=== PATIENT | female | born 1975 | race Caucasian/White ===

== ENCOUNTER → 2016-11-10 | Outpatient (CLI) | payer MEDICARE, MEDICAID | LOC: MW.CHFP 10:07 | PROVIDERS: ATTEND Nurse Practitioner Family | DX: R50.9 Fever, unspecified (principal); J32.9 Chronic sinusitis, unspecified; R05 Cough | CPT/HCPCS: 36415; 85025; G0463 ==

== ENCOUNTER → 2016-12-06 | Outpatient (CLI) | payer MEDICARE | LOC: MW.CHFP 08:00 | PROVIDERS: ATTEND Physician Assistant | DX: NODX10 (principal) ==

== ENCOUNTER 2016-12-08 13:45 | Emergency (ER) | payer MEDICAID, MEDICARE ==
--- NOTE | 2016-12-08 14:16 | EDM.PDOC ---
ED HPI DIABETIC EMERGENCY - General Chief Complaint: Diabetic Complaint Stated Complaint: HIGH BLOOD SUGAR Time Seen by Provider: 12/08/16 14:05 Source of Information: Reports: Patient History Limitations: Reports: No limitations - History of Present Illness INITIAL COMMENTS - FREE TEXT/NARRATIVE: HISTORY AND PHYSICAL: History of present illness: [Patient comes to the ER today complaining of elevated blood sugars. She is a type I diabetic with an insulin pump. Her insulin pump recorded her blood sugar as greater than 600. This was confirmed with her glucometer with a reading greater than 600. She has tried to push fluids and gone for walks today in an attempt to lower her blood sugars, which has been largely ineffective. She has a dry mouth and eyes feel dry. Her head feels fuzzy and she feels that it is taking longer than normal to answer some questions. She denies any fainting, head trauma or confusion. She's had no nausea vomiting or abdominal pain. She is urinating more frequently than usual. No burning with urination or hematuria. She denies chest pain, shortness of breath, or difficulty breathing.] Review of systems: As per history of present illness and below otherwise all systems reviewed and negative. Past medical history: As per history of present illness and as reviewed below otherwise noncontributory. Surgical history: As per history of present illness and as reviewed below otherwise noncontributory. Social history: No reported history of drug or alcohol abuse. Family history: As per history of present illness and as reviewed below otherwise noncontributory. Physical exam: HEENT: Atraumatic, normocephalic. Oral mucous membranes somewhat dry, throat clear. neck supple, nontender, no lymphadenopathy. Lungs: Clear to auscultation, breath sounds equal bilaterally, chest nontender. Heart: S1S2, regular rate and rhythm, negative for clicks, rubs, or JVD. Abdomen: Overweight, Soft, nondistended, nontender. No CVA tenderness. No guarding or rebound. Negative for masses or hepatosplenomegaly. Pelvis: Stable nontender. Genitourinary: Deferred. Rectal: Deferred. Extremities: Atraumatic, no cyanosis or edema to feet or lower legs. No deformity. Neurovascular unremarkable. Neuro: Awake, alert, oriented. Cranial nerves II through XII unremarkable. Motor and sensory unremarkable throughout. Exam nonfocal. Psych: Alert oriented, answers questions appropriately, logical, congruent thoughts. Diagnostics: [CBC, CMP, ABG's, qualitative Hcg, UA, serum ketones ] Therapeutics: [Normal saline x 2 liters, regular insulin 15 units, regular insulin 8 units] Impression: [Hyperglycemia] Plan: [Patient's labs demonstrate that she is hyperglycemic and not acidotic. Her blood sugar comes down to mid 200s with 2 doses of insulin at 2 L of normal saline. This patient's condition and lab results are reviewed with Dr. Pretty who is in agreement that patient can be discharged home and that there are no grounds for admission at this time. This is reviewed with the patient. She is instructed to change her insulin pump site and continue to monitor blood sugars closely. If she is finding that her pump is ineffective she is to switch to subcutaneous insulin with syringes. She has other insulin at home that she will use if her sugars are not coming down with the injections. She is to follow up with her primary care on Sunday. She is scheduled for an appointment by ER staff. Also recommend following up with diabetes educator. Discussed criteria to return to the emergency room for evaluation. She is in agreement with today' s plan. all questions are answered and concerns are addressed.] Definitive disposition and diagnosis as appropriate pending reevaluation and review of above. - Related Data Allergies/ADRs: Allergies Allergy/AdvReac Type Severity Reaction Status Date / Time latex Allergy Cannot Verified 12/08/16 14:10 Remember Sulfa (Sulfonamide Allergy Difficulty Verified 12/08/16 14:10 Antibiotics) Breathing tizanidine Allergy Rash Verified 12/08/16 14:10 wool Allergy Cannot Verified 12/08/16 14:10 Remember Home Meds: Home Meds Subcutaneous Insulin Pump [Insulin Pump] 0 units SQ ASDIRECTED 05/19/14 [History ] atorvaSTATin [Lipitor] 40 mg PO DAILY 05/12/15 [History] Albuterol [Ventolin HFA] 1 puff PO DAILY 01/07/16 [History] Gabapentin [Gabapentin] 1 cap PO TID 01/07/16 [History] Loratadine/Pseudoephedrine [Claritin-D 24 Hour Tablet] 1 tab PO DAILY 01/07/16 [ History] Mecobal/Levomefolat Ca/B6 Phos [Foltanx Tablet] 1 tab PO DAILY 01/07/16 [History ] Cyclobenzaprine [Flexeril] 5 mg PO DAILY 12/08/16 [History] Gabapentin [Neurontin] 300 mg PO DAILY 12/08/16 [History] hydrOXYzine HCl [Atarax] 25 mg PO DAILY 12/08/16 [History] Past Medical History Other Cardiovascular History: Mitral valve prolapse Respiratory History: Reports: Asthma Other Genitourinary History: Kidney prob due to diabetes [employer]ILD[employer]TE[employer] History: Reports: Musculoskeletal History: Reports: Back pain, chronic Neurological History: Reports: Neuropathy, diabetic Endocrine/Metabolic History: Reports: Diabetes, type I - Past Surgical History HEENT Surgical History: Reports: Oral surgery GI Surgical History: Reports: Cholecystectomy Neurological Surgical History: Reports: C-Spine, Lumbar spine Social & Family History - Family History Family Medical History: Noncontributory - Tobacco Use Smoking Status *Q: Current Every Day Smoker Years of Tobacco use: 24 Packs/Tins Daily: 1 - Alcohol Use Days Per Week of Alcohol Use: 0 - Recreational Drug Use Recreational Drug Use: No Drug Use in Last 12 Months: No Recreational Drug Type: Reports: Cocaine, Marijuana/Hashish, Methamphetamine ED ROS GENERAL - Review of Systems Review Of Systems: ROS reveals no pertinent complaints other than HPI. ED EXAM GENERAL NO PERIP PULSE - Physical Exam Exam: See Below Course - Vital Signs Last Recorded V/S: Last Vital Signs Temp 98.8 F 12/08/16 18:18 Pulse 88 12/08/16 18:18 Resp 16 12/08/16 18:18 BP 148/90 H 12/08/16 18:18 Pulse Ox 98 12/08/16 18:18 - Orders/Labs/Meds Orders: Active Orders 24 hr Category Date Time Status Saline Lock Insert [OM.PC] Stat Oth 12/08/16 14:29 Ordered Labs: Laboratory Tests 12/08/16 12/08/16 12/08/16 Range/Units 13:58 14:16 14:16 WBC 9.91 (4.0-11.0) K/uL RBC 4.29 L (4.30-5.90) M/uL Hgb 13.3 (12.0-16.0) g/dL Hct 40.3 (36.0-46.0) % MCV 93.9 (80.0-98.0) fL MCH 31.0 (27.0-32.0) pg MCHC 33.0 (31.0-37.0) g/dL RDW Std Deviation 50.4 (28.0-62.0) fl RDW Coeff of Kristi 15 (11.0-15.0) % Plt Count 329 (150-400) K/uL MPV 9.20 (7.40-12.00) fL Neut % (Auto) 71.7 (48.0-80.0) % Lymph % (Auto) 20.5 (16.0-40.0) % [place] % (Auto) 5.2 (0.0-15.0) % Eos % (Auto) 2.4 (0.0-7.0) % Baso % (Auto) 0.2 (0.0-1.5) % Neut # (Auto) 7.1 H (1.4-5.7) K/uL Lymph # (Auto) 2.0 (0.6-2.4) K/uL [place] # (Auto) 0.5 (0.0-0.8) K/uL Eos # (Auto) 0.2 (0.0-0.7) K/uL Baso # (Auto) 0.0 (0.0-0.1) K/uL Nucleated RBC % 0.0 /100WBC Nucleated RBCs # 0 K/uL ABG pH (7.35-7.45) ABG pCO2 (35-45) mmHG ABG pO2 (75-100) mmHG ABG HCO3 (22-26) mEq/L ABG Total CO2 ABG Base Excess (-2.0-2.0) Sodium 132 L (136-146) mmol/L Potassium 4.8 (3.5-5.1) mmol/L Chloride 100 (98-110) mmol/L Carbon Dioxide 17 L (21-31) mmol/L BUN 25 H (6.0-23.0) mg/dL Creatinine 1.2 (0.6-1.5) mg/dL Est Cr Clr Drug Dosing 58.78 mL/min Estimated GFR (MDRD) 49.0 ml/min Glucose 681 H* (60-110) mg/dL POC Glucose > 500 H (60-110) mg/dL Calcium 9.8 (8.8-10.8) mg/dL Total Bilirubin 0.6 (0.1-1.5) mg/dL AST 17 (5-40) IU/L ALT 18 (8-54) IU/L Alkaline Phosphatase 91 (40-150) Total Protein 8.0 (6.0-8.0) g/dL Albumin 4.3 (3.5-5.0) g/dL Globulin 3.7 H (2.0-3.5) g/dL Albumin/Globulin Ratio 1.2 L (1.3-2.8) Urine Color Urine Appearance Urine pH (5.0-8.0) Ur Specific [place] (1.001-1.035) Urine Protein (NEGATIVE) mg/dL Urine Glucose (UA) (NEGATIVE) mg/dL Urine Ketones (NEGATIVE) mg/dL Urine Occult Blood (NEGATIVE) Urine Nitrite (NEGATIVE) Urine Bilirubin (NEGATIVE) Urine Urobilinogen (<2.0) EU/dL Ur Leukocyte Esterase (NEGATIVE) Urine RBC (0-2/HPF) Urine WBC (0-5/HPF) Ur Epithelial Cells (NONE-FEW) Urine Bacteria (NEGATIVE) Urine HCG, Qual (NEGATIVE) Ketones (NEG) 12/08/16 12/08/16 12/08/16 Range/Units 14:16 14:38 14:38 WBC (4.0-11.0) K/uL RBC (4.30-5.90) M/uL Hgb (12.0-16.0) g/dL Hct (36.0-46.0) % MCV (80.0-98.0) fL MCH (27.0-32.0) pg MCHC (31.0-37.0) g/dL RDW Std Deviation (28.0-62.0) fl RDW Coeff of Kristi (11.0-15.0) % Plt Count (150-400) K/uL MPV (7.40-12.00) fL Neut % (Auto) (48.0-80.0) % Lymph % (Auto) (16.0-40.0) % [place] % (Auto) (0.0-15.0) % Eos % (Auto) (0.0-7.0) % Baso % (Auto) (0.0-1.5) % Neut # (Auto) (1.4-5.7) K/uL Lymph # (Auto) (0.6-2.4) K/uL [place] # (Auto) (0.0-0.8) K/uL Eos # (Auto) (0.0-0.7) K/uL Baso # (Auto) (0.0-0.1) K/uL Nucleated RBC % /100WBC Nucleated RBCs # K/uL ABG pH (7.35-7.45) ABG pCO2 (35-45) mmHG ABG pO2 (75-100) mmHG ABG HCO3 (22-26) mEq/L ABG Total CO2 ABG Base Excess (-2.0-2.0) Sodium (136-146) mmol/L Potassium (3.5-5.1) mmol/L Chloride (98-110) mmol/L Carbon Dioxide (21-31) mmol/L BUN (6.0-23.0) mg/dL Creatinine (0.6-1.5) mg/dL Est Cr Clr Drug Dosing mL/min Estimated GFR (MDRD) ml/min Glucose (60-110) mg/dL POC Glucose (60-110) mg/dL Calcium (8.8-10.8) mg/dL Total Bilirubin (0.1-1.5) mg/dL AST (5-40) IU/L ALT (8-54) IU/L Alkaline Phosphatase (40-150) Total Protein (6.0-8.0) g/dL Albumin (3.5-5.0) g/dL Globulin (2.0-3.5) g/dL Albumin/Globulin Ratio (1.3-2.8) Urine Color YELLOW Urine Appearance CLEAR Urine pH 5.5 (5.0-8.0) Ur Specific [place] 1.010 (1.001-1.035) Urine Protein NEGATIVE (NEGATIVE) mg/dL Urine Glucose (UA) >=1000 (NEGATIVE) mg/dL Urine Ketones 40 H (NEGATIVE) mg/dL Urine Occult Blood NEGATIVE (NEGATIVE) Urine Nitrite NEGATIVE (NEGATIVE) Urine Bilirubin NEGATIVE (NEGATIVE) Urine Urobilinogen 0.2 (<2.0) EU/dL Ur Leukocyte Esterase NEGATIVE (NEGATIVE) Urine RBC 0-1 (0-2/HPF) Urine WBC 0-1 (0-5/HPF) Ur Epithelial Cells FEW (NONE-FEW) Urine Bacteria RARE (NEGATIVE) Urine HCG, Qual NEGATIVE (NEGATIVE) Ketones NEGATIVE (NEG) 12/08/16 Range/Units 14:45 WBC (4.0-11.0) K/uL RBC (4.30-5.90) M/uL Hgb (12.0-16.0) g/dL Hct (36.0-46.0) % MCV (80.0-98.0) fL MCH (27.0-32.0) pg MCHC (31.0-37.0) g/dL RDW Std Deviation (28.0-62.0) fl RDW Coeff of Kristi (11.0-15.0) % Plt Count (150-400) K/uL MPV (7.40-12.00) fL Neut % (Auto) (48.0-80.0) % Lymph % (Auto) (16.0-40.0) % [place] % (Auto) (0.0-15.0) % Eos % (Auto) (0.0-7.0) % Baso % (Auto) (0.0-1.5) % Neut # (Auto) (1.4-5.7) K/uL Lymph # (Auto) (0.6-2.4) K/uL [place] # (Auto) (0.0-0.8) K/uL Eos # (Auto) (0.0-0.7) K/uL Baso # (Auto) (0.0-0.1) K/uL Nucleated RBC % /100WBC Nucleated RBCs # K/uL ABG pH 7.381 (7.35-7.45) ABG pCO2 33 L (35-45) mmHG ABG pO2 75 (75-100) mmHG ABG HCO3 19 L (22-26) mEq/L ABG Total CO2 17.4 ABG Base Excess -5.1 L (-2.0-2.0) Sodium (136-146) mmol/L Potassium (3.5-5.1) mmol/L Chloride (98-110) mmol/L Carbon Dioxide (21-31) mmol/L BUN (6.0-23.0) mg/dL Creatinine (0.6-1.5) mg/dL Est Cr Clr Drug Dosing mL/min Estimated GFR (MDRD) ml/min Glucose (60-110) mg/dL POC Glucose (60-110) mg/dL Calcium (8.8-10.8) mg/dL Total Bilirubin (0.1-1.5) mg/dL AST (5-40) IU/L ALT (8-54) IU/L Alkaline Phosphatase (40-150) Total Protein (6.0-8.0) g/dL Albumin (3.5-5.0) g/dL Globulin (2.0-3.5) g/dL Albumin/Globulin Ratio (1.3-2.8) Urine Color Urine Appearance Urine pH (5.0-8.0) Ur Specific [place] (1.001-1.035) Urine Protein (NEGATIVE) mg/dL Urine Glucose (UA) (NEGATIVE) mg/dL Urine Ketones (NEGATIVE) mg/dL Urine Occult Blood (NEGATIVE) Urine Nitrite (NEGATIVE) Urine Bilirubin (NEGATIVE) Urine Urobilinogen (<2.0) EU/dL Ur Leukocyte Esterase (NEGATIVE) Urine RBC (0-2/HPF) Urine WBC (0-5/HPF) Ur Epithelial Cells (NONE-FEW) Urine Bacteria (NEGATIVE) Urine HCG, Qual (NEGATIVE) Ketones (NEG) Meds: Medications Discontinued Medications Generic Name Dose Route Start Last Admin Trade Name Freq PRN Reason Stop Dose Admin Sodium Chloride 1,000 mls @ 999 mls/hr 12/08/16 14:30 Normal Saline IV 12/08/16 15:30 STAT ONE Sodium Chloride 1,000 mls @ 999 mls/hr 12/08/16 14:43 12/08/16 15:27 Normal Saline IV 12/08/16 15:43 999 mls/hr STAT ONE Administration Sodium Chloride 1,000 mls @ 999 mls/hr 12/08/16 16:49 12/08/16 17:10 Normal Saline IV 12/08/16 17:49 999 mls/hr STAT ONE Administration Insulin Human Regular 15 unit 12/08/16 14:55 12/08/16 15:27 Novolin R SUBCUT 12/08/16 14:56 15 units ONETIME ONE Administration Protocol Insulin Human Regular 12 unit 12/08/16 16:49 Novolin R SUBCUT 12/08/16 16:50 ONETIME ONE Protocol Insulin Human Regular 8 unit 12/08/16 17:11 12/08/16 17:12 Novolin R IVPUSH 12/08/16 17:12 8 units ONETIME ONE Administration Protocol Sodium Chloride 10 ml 12/08/16 14:29 12/08/16 15:30 Saline Flush FLUSH 10 ml ASDIRECTED PRN Administration Keep Vein Open Sodium Chloride 2.5 ml 12/08/16 14:29 12/08/16 15:30 Saline Flush FLUSH 2.5 ml ASDIRECTED PRN Administration Keep Vein Open Departure - Departure Time of Disposition: 18:10 Disposition: Home, Self-Care 01 Condition: good Clinical Impression: Hyperglycemia Instructions: Hyperglycemia Referrals: Cherie Jasso PA [Physician Tax Services Intern] - 12/11/16 (Follow up on with [facility] at Sunday12/11/2016 at 2:00pm) PCP,None [Primary Care Provider] - Forms: ED Department Discharge Additional Instructions: The following information is given to patients seen in the emergency department who are being discharged to home. This information is to outline your options for follow-up care. We provide all patients seen in our emergency department with a follow-up referral. The need for follow-up, as well as the timing and circumstances, are variable depending upon the specifics of your emergency department visit. If you don't have a primary care physician on staff, we will provide you with a referral. We always advise you to contact your personal physician following an emergency department visit to inform them of the circumstance of the visit and for follow-up with them and/or the need for any referrals to a consulting specialist. The emergency department will also refer you to a specialist when appropriate. This referral assures that you have the opportunity for follow-up care with a specialist. All of these measure are taken in an effort to provide you with optimal care, which includes your follow-up. Under all circumstances we always encourage you to contact your private physician who remains a resource for coordinating your care. When calling for follow-up care, please make the office aware that this follow-up is from your recent emergency room visit. If for any reason you are refused follow-up, please contact the [facility] emergency department at and asked to speak to the emergency department charge nurse. [address] [address] Followup with your primary care provider at the clinic listed above as scheduled. Recommend following up with diabetic specialist on Sunday, December 11. Continue close monitoring of your blood sugars and adjust your insulin as needed as we discussed. Return to ER as needed as discussed.
[2016-12-08] MEDS ORDERED: Sodium Chloride 0.9% 10 ML Syringe FLUSH PRN (14:29)
[2016-12-08] MEDS ORDERED: Sodium Chloride 0.9% 2.5 ML Syringe FLUSH PRN (14:29)
[2016-12-08] MEDS ORDERED: Sodium Chloride 0.9% 1,000 ML IV ONE ×3 (14:30→16:49)
[2016-12-08] MEDS ORDERED: Insulin Regular, Human 100 Units/ML 10 ML Vial SUBCUT ONE ×2 (14:55→16:49)
[2016-12-08] MEDS ORDERED: Insulin Regular, Human 100 Units/ML 10 ML Vial IVPUSH ONE (17:11)
--- NOTE | 2016-12-08 17:41 | PCM.PRNOTE ---
- Free Text/Narrative Note: asked to see pt for an abg draw and peripheral iv start. explained procedure to patient who agrees to proceed. blood gas drawn left radial with one pass. # 20 peripheral start x 2 attempts, started left wrist. pt tolerated well.
[2016-12-08 18:20] VITALS: BP 148/90
== END 2016-12-08 18:18 | disposition home or self-care (01) ==
LOC: MW.ED 13:45
DX: E10.65 Type 1 diabetes mellitus with hyperglycemia (principal); E10.40 Type 1 diabetes mellitus with diabetic neuropathy, unspecified; E10.21 Type 1 diabetes mellitus with diabetic nephropathy; J45.909 Unspecified asthma, uncomplicated; F17.210 Nicotine dependence, cigarettes, uncomplicated; Z88.2 Allergy status to sulfonamides; Z91.040 Latex allergy status; Z79.899 Other long term (current) drug therapy; Z98.890 Other specified postprocedural states; Z90.89 Acquired absence of other organs
CPT/HCPCS: 36415; 36600; 80053; 81001; 81025; 82009; 82803; 82962; 85025; 96361; 96372; 96374; 99285; J7040; 36410; 99284; J1815-GY

== ENCOUNTER → 2016-12-13 | Outpatient (CLI) | payer MEDICARE | LOC: MW.CHFP 08:00 | PROVIDERS: ATTEND Physician Assistant | DX: NODX10 (principal) ==

== ENCOUNTER → 2017-01-03 | Outpatient (CLI) | payer MEDICARE, MEDICAID ==
--- NOTE | 2017-01-03 16:59 | CR ---
EXAMINATION: Cervical spine HISTORY: Neck pain COMPARISON: 10/09/2016 TECHNIQUE: Lateral view FINDINGS/IMPRESSION: There is stable anterior fusion hardware at C6-C7 with grossly stable mildly in creasing interbody osseous fusion. The C5 and C6 vertebral bodies are fused. Otherwise the osseous s tructures appear intact with normal bone mineralization.
== END ==
LOC: MW.DI 11:46
PROVIDERS: ATTEND Neurological Surgery
DX: M54.2 Cervicalgia (principal); Z98.1 Arthrodesis status
CPT/HCPCS: 72020; 72020-26

== ENCOUNTER → 2017-01-08 | Outpatient (CLI) | payer MEDICARE, MEDICAID | END | disposition home or self-care (01) | LOC: MW.CHFP 08:13 | PROVIDERS: ATTEND Physician Assistant | DX: Z11.3 Encounter for screening for infections with a predominantly sexual mode of transmission (principal); E78.5 Hyperlipidemia, unspecified; E11.9 Type 2 diabetes mellitus without complications; Z79.4 Long term (current) use of insulin; K21.9 Gastro-esophageal reflux disease without esophagitis; J32.0 Chronic maxillary sinusitis; Z01.419 Encounter for gynecological examination (general) (routine) without abnormal findings | CPT/HCPCS: 36415; 80061; 82044; 83036; 86592; 87389; 87491; 87591; 99214 ==

== ENCOUNTER → 2017-01-10 | Outpatient (CLI) | payer MEDICARE, MEDICAID | LOC: MW.CHPM 08:00 | PROVIDERS: ATTEND Anesthesiology | DX: M54.12 Radiculopathy, cervical region (principal); E11.42 Type 2 diabetes mellitus with diabetic polyneuropathy; M51.36 Other intervertebral disc degeneration, lumbar region; M96.1 Postlaminectomy syndrome, not elsewhere classified | CPT/HCPCS: 99214 ==

== ENCOUNTER → 2017-01-16 | Outpatient (CLI) | payer MEDICARE, MEDICAID | LOC: MW.CHFP 08:00 | PROVIDERS: ATTEND Physician Assistant | DX: L55.1 Sunburn of second degree (principal) | CPT/HCPCS: G0463 ==

== ENCOUNTER 2018-11-09 15:51 | Emergency (ER) | payer MEDICAID, MEDICARE ==
--- NOTE | 2018-11-09 16:00 | EDM.PDOC ---
ED HPI GENERAL MEDICAL PROBLEM - General Stated Complaint: FELL AND HIT HEAD Time Seen by Provider: 11/09/18 15:52 Source of Information: Reports: Patient History Limitations: Reports: No Limitations - History of Present Illness INITIAL COMMENTS - FREE TEXT/NARRATIVE: HISTORY AND PHYSICAL: History of present illness: Patient is a 43-year-old female who presents to the emergency room with complaints of head and neck pain after falling and hitting her head yesterday evening. She states she slipped on some ice and fell backwards hitting the back of her head on concrete. She states this fall was unwitnessed and is unsure if she had brief loss of consciousness. Believes she had no LOC. States she had blurred vision for approximately one hour after the event. She has had intermittent nausea without vomiting. She was able to sleep without any difficulty. Pain to her posterior scalp and upper cervical spine has not subsided. She does have some anterior right-sided rib pain and posterior pelvis pain (states this is chronic due to previous injury/surgery). She denies any alcohol or drug abuse. She denies any fever, chills, chest pain, shortness of breath or cough. Denies any abdominal pain, vomiting, diarrhea, constipation or dysuria. Patient has been fully ambulatory without any difficulty or deficits. Denies any urinary or fecal incontinence. Denies any syncope or near-syncope or current change in vision. Denies any chance of . Review of systems: As per history of present illness and below otherwise all systems reviewed and negative. Past medical history: As per history of present illness and as reviewed below otherwise noncontributory. Surgical history: As per history of present illness and as reviewed below otherwise noncontributory. Social history: See social history for further information Family history: As per history of present illness and as reviewed below otherwise noncontributory. Physical exam: General: Well-developed and well-nourished 43-year-old female. Alert and oriented. Nontoxic appearing and in no acute distress. HEENT: Mild tenderness to posterior scalp, normocephalic, pupils equal and reactive bilaterally, negative for conjunctival pallor or scleral icterus, mucous membranes moist, TMs normal bilaterally, throat clear, neck supple, nontender, trachea midline. No drooling or trismus noted. No meningeal signs. No hot potato voice noted. Lungs: Clear to auscultation, breath sounds equal bilaterally, chest nontender. Heart: S1S2, regular rate and rhythm without overt murmur Abdomen: Soft, nondistended, nontender. Negative for masses or hepatosplenomegaly. Negative for costovertebral tenderness. Pelvis: Stable nontender. Genitourinary: Deferred. Rectal: Deferred. Skin: Intact, warm, dry. No lesions or rashes noted. C-spine/Back: No pinpoint vertebral tenderness upon palpation. No crepitus, step -offs or obvious deformities. She does have some paraspinous muscle tenderness to bilateral cervical spine. Patient is fully ambulatory without difficulty or deficits. Denies any numbness, tingling or satellite parasthesia. Denies any urinary or fecal incontinence. Extremities: Moves all per self, negative for cords or calf pain. Neurovascular unremarkable. Neuro: Awake, alert, oriented. Cranial nerves II through XII unremarkable. Cerebellum unremarkable. Motor and sensory unremarkable throughout. Exam nonfocal. Notes: Patient's head CT shows no acute infarction, intracranial hemorrhage or mass effect. chest x-ray shows no evidence of acute cardiopulmonary disease. Pelvis x -ray shows mild osteoarthritis. No fracture noted. Minimal degenerative disease. Cervical spine CT shows no acute fracture or abnormality/sublux injury. 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 Supportive care measures were reviewed and discussed. Voices understanding and is agreeable to plan of care. Denies any further questions or concerns at this time. Diagnostics: Head CT, cervical spine CT, 2 view chest, pelvis Therapeutics: Declines Prescription: Declines Impression: Head injury Plan: 1. Please review the head injury instructions that are printed in your packet and were reviewed and discussed 2. Tylenol and/or ibuprofen as needed for pain management. 3. Please follow-up with your primary care provider as we discussed. Return to the ED as needed and as discussed. Definitive disposition and diagnosis as appropriate pending reevaluation and review of above. Head Pain Score (Numeric/FACES): 6 - Related Data Allergies Allergy/AdvReac Type Severity Reaction Status Date / Time latex Allergy Cannot Verified 11/09/18 16:04 Remember Sulfa (Sulfonamide Allergy Difficulty Verified 11/09/18 16:04 Antibiotics) Breathing tizanidine Allergy Rash Verified 11/09/18 16:04 wool Allergy Cannot Verified 11/09/18 16:04 Remember Home Meds: Home Meds Acetaminophen [Tylenol Arthritis] 1,300 mg PO BID 11/09/18 [History] Albuterol [Ventolin HFA] 2 puff INH Q4H PRN 11/09/18 [History] Aspirin [Halfprin] 81 mg PO DAILY 11/09/18 [History] Bran/Gum/Fib/[place]/Psyl/Kelp/Pec [Fiber 6 Tablet] 8,000 mg PO DAILY 11/09/18 [ History] C-Marlen/Catia/Bacl/Bupiv/Clonid 11/09/18 [History] Cholecalciferol (Vitamin D3) [Vitamin D3] 2,000 unit PO DAILY 11/09/18 [History] Cyclobenzaprine [Flexeril] 5 mg PO ASDIRECTED 11/09/18 [History] EPINEPHrine [Epipen] 0.3 ml IM ASDIRECTED 11/09/18 [History] Fluticasone Propionate [Flonase] 2 spray NASBOTH BID 11/09/18 [History] Gabapentin [Neurontin] 300 mg PO ASDIRECTED 11/09/18 [History] Krill/[place]-3/Dha/Epa/Lipids [Krill Oil 300 mg Softgel] 1 tab PO DAILY 11/09/18 [History] Lisinopril [Prinivil] 2.5 mg PO DAILY 11/09/18 [History] Loratadine 10 mg PO DAILY 11/09/18 [History] Magnesium 250 mg PO DAILY 11/09/18 [History] Mecobal/Levomefolat Ca/B6 Phos [Foltanx Tablet] 1 tab PO BID 11/09/18 [History] Melatonin 9 mg PO BEDTIME 11/09/18 [History] Montelukast [Singulair] 10 mg PO BEDTIME 11/09/18 [History] Multivitamin with Iron [Multivitamins with Iron] 1 tab PO DAILY 11/09/18 [ History] Pantoprazole [ProTONIX] 40 mg PO DAILY 11/09/18 [History] Potassium Gluconate [Potassium] 595 mg PO DAILY 11/09/18 [History] Vitamin E 400 unit PO DAILY 11/09/18 [History] atorvaSTATin [Lipitor] 40 mg PO BEDTIME 11/09/18 [History] busPIRone HCl [Buspirone HCl] 15 mg PO BID 11/09/18 [History] diphenhydrAMINE [Benadryl] 50 mg PO ASDIRECTED PRN 11/09/18 [History] hydrOXYzine HCl [hydrOXYzine] 50 mg PO BID 11/09/18 [History] traZODone HCl [Trazodone HCl] 100 mg PO BEDTIME 11/09/18 [History] Past Medical History Cardiovascular History: Reports: High Cholesterol, [place] Other Cardiovascular History: [place] at 14yrs age Respiratory History: Reports: Asthma Other Genitourinary History: Kidney prob due to diabetes 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 ASSISTANT History: Reports: Musculoskeletal History: Reports: Back Pain, Chronic Neurological History: Reports: Neuropathy, Diabetic Endocrine/Metabolic History: Reports: Diabetes, Type I Hematologic History: Reports: None - Infectious Disease History Infectious Disease History: Reports: Chicken Pox - Past Surgical History HEENT Surgical History: Reports: Oral Surgery GI Surgical History: Reports: Cholecystectomy Neurological Surgical History: Reports: C-Spine, Lumbar Spine Musculoskeletal Surgical History: Reports: Other (See Below) Social & Family History - Family History Family Medical History: Noncontributory - Caffeine Use Caffeine Use: Reports: Coffee, Soda ED ROS GENERAL - Review of Systems Review Of Systems: ROS reveals no pertinent complaints other than HPI. ED EXAM, HEAD INJURY - Physical Exam Exam: See Below (See dictation) Course - Vital Signs Last Recorded V/S: Last Vital Signs Temp 96.8 F 11/09/18 16:04 Pulse 113 H 11/09/18 16:04 Resp 16 11/09/18 16:04 BP 142/100 H 11/09/18 16:04 Pulse Ox 98 11/09/18 16:04 Departure - Departure Time of Disposition: 16:54 Disposition: Home, Self-Care 01 Clinical Impression: Head injury Qualifiers: Encounter type: initial encounter Qualified Code(s): S09.90XA - Unspecified injury of head, initial encounter - Discharge Information Instructions: Concussion, Adult, [id number], Head Injury, Adult, [id number] Additional Instructions: The following information is given to patients seen in the emergency department who are being discharged to home. This information is to outline your options for follow-up care. We provide all patients seen in our emergency department with a follow-up referral. The need for follow-up, as well as the timing and circumstances, are variable depending upon the specifics of your emergency department visit. If you don't have a primary care physician on staff, we will provide you with a referral. We always advise you to contact your personal physician following an emergency department visit to inform them of the circumstance of the visit and for follow-up with them and/or the need for any referrals to a consulting specialist. The emergency department will also refer you to a specialist when appropriate. This referral assures that you have the opportunity for follow-up care with a specialist. All of these measure are taken in an effort to provide you with optimal care, which includes your follow-up. Under all circumstances we always encourage you to contact your private physician who remains a resource for coordinating your care. When calling for follow-up care, please make the office aware that this follow-up is from your recent emergency room visit. If for any reason you are refused follow-up, please contact the [facility] Emergency Department at and asked to speak to the emergency department charge nurse. [facility] [address] [place] [address] [place] [address] 1. Please review the head injury instructions that are printed in your packet and were reviewed and discussed 2. Tylenol and/or ibuprofen as needed for pain management. 3. Please follow-up with your primary care provider as we discussed. Return to the ED as needed and as discussed.
--- NOTE | 2018-11-09 16:41 | CR ---
INDICATION: pain/fell on ice yesterday 2 View Chest. Findings: The lungs are clear. Pulmonary vascularity, mediastinum and cardiac silhouette are within normal limits. No effusions and no pneumothorax. Osseous structures appear unremarkable. Impression: No evidence of acute cardiopulmonary disease. Dictated by: Mauricio Ramires MD @ 11/09/2018 16:41:01 (Electronically Signed)
--- NOTE | 2018-11-09 16:43 | CT ---
INDICATION: Pain. Fell yesterday, hit back of head on ice. TECHNIQUE: CT head without i.v. contrast. COMPARISON: Comparison head CT dated 06/22/2018. FINDINGS: CSF spaces: Within normal limits for age. Brain parenchyma: The brain parenchyma is normal in appearance with preservation of the galdamez-white differentiation. No sign of mass, hemorrhage, or midline shift seen. Skull base and calvarium: The visualized paranasal sinuses are well aerated. The mastoid air cells are clear. The visualized orbits are grossly unremarkable. No skull fractures are seen. IMPRESSION: 1. No evidence of acute infarction, intracranial hemorrhage, or mass effect seen. Dictated by David Benito MD @ 11/09/2018 4:41:47 PM Please note that all CT scans at this facility use dose modulation, iterative reconstruction, and/or weight-based dosing when appropriate to reduce radiation dose to as low as reasonably achievable. Dictated by: David Benito MD @ 11/09/2018 16:41:53 (Electronically Signed)
--- NOTE | 2018-11-09 16:43 | CR ---
INDICATION: Pain after fall. TECHNIQUE: One view. IMPRESSION: Mild osteoarthritis of both hips. Lumbosacral fusion with interbody implants L3 through S1. Surgical clips and potentially embolization coils ventral from midline S1. No pelvic fracture. Minimal likely degenerative offset at the symphysis pubis with the left pubis elevated prior roughly 2.5 mm over the right. Sacroiliac joints appear normal. Dictated by Mauricio Ramires MD @ Nov 09 2018 4:41PM Signed by Dr. Mauricio Ramires @ Nov 09 2018 4:42PM
--- NOTE | 2018-11-09 16:50 | CT ---
INDICATION: Neck pain. Fell yesterday, hit back of head on ice. TECHNIQUE: CT cervical spine without i.v. contrast. Coronal and sagittal reformats were obtained. COMPARISON: CT cervical spine dated 05/12/2015. FINDINGS: Vertebral alignment: Alignment is normal. Lateral masses of C1-C2 are normally aligned. Facet joints are normally aligned at all levels. Vertebrae: Postsurgical changes from anterior fusion at C6-C7 with interbody fusion of C5-C6 and C6-C7. No acute fracture. Discs and facet joints: Disc spaces are within normal limits. The facet joints are unremarkable in appearance. Extraspinal findings: The prevertebral soft tissues are unremarkable in appearance. The visualized lung apices and mediastinum are unremarkable. IMPRESSION: 1. No acute cervical spine fracture or abnormal subluxation injury. Dictated by David Benito MD @ 11/09/2018 4:48:14 PM Please note that all CT scans at this facility use dose modulation, iterative reconstruction, and/or weight-based dosing when appropriate to reduce radiation dose to as low as reasonably achievable. Dictated by: David Benito MD @ 11/09/2018 16:48:20 (Electronically Signed)
[2018-11-09 17:29] VITALS: BP 114/79
== END 2018-11-09 17:17 | disposition home or self-care (01) ==
LOC: MW.ED 15:51
DX: S09.90XA Unspecified injury of head, initial encounter (principal); E10.40 Type 1 diabetes mellitus with diabetic neuropathy, unspecified; E78.00 Pure hypercholesterolemia, unspecified; Z79.899 Other long term (current) drug therapy; Z79.82 Long term (current) use of aspirin; Z91.040 Latex allergy status; Z88.2 Allergy status to sulfonamides; Z91.09 Other allergy status, other than to drugs and biological substances; Z88.8 Allergy status to other drugs, medicaments and biological substances; W19.XXXA Unspecified fall, initial encounter; W22.8XXA Striking against or struck by other objects, initial encounter
CPT/HCPCS: 70450; 70450-26; 71046; 71046-26; 72125; 72125-26; 72170; 72170-26; 99284; 99284-25

== ENCOUNTER 2019-04-28 08:32 | Emergency (ER) | payer MEDICAID, MEDICARE ==
--- NOTE | 2019-04-28 08:45 | EDM.PDOC ---
ED HPI GENERAL MEDICAL PROBLEM - General Chief Complaint: Lower Extremity Injury/Pain Stated Complaint: RIGHT ANKLE PAIN Time Seen by Provider: 04/28/19 08:36 - History of Present Illness INITIAL COMMENTS - FREE TEXT/NARRATIVE: HISTORY AND PHYSICAL: History of present illness: Patient's 43-year-old white female presents with concern of right ankle injury this occurred when she was getting off a ladder yesterday and rolled her ankle. She also complains of some proximal leg tenderness. This is all on the right there is no other associated trauma or concern Review of systems: As per history of present illness and below otherwise all systems reviewed and negative. Past medical history: As per history of present illness and as reviewed below otherwise noncontributory. Surgical history: As per history of present illness and as reviewed below otherwise noncontributory. Social history: No reported history of drug or alcohol abuse. Family history: As per history of present illness and as reviewed below otherwise noncontributory. Physical exam: HEENT: Atraumatic, normocephalic, pupils reactive, negative for conjunctival pallor or scleral icterus, mucous membranes moist, throat clear, neck supple, nontender, trachea midline. Lungs: Clear to auscultation, breath sounds equal bilaterally, chest nontender. Heart: S1S2, regular, negative for clicks, rubs, or JVD. Abdomen: Soft, nondistended, nontender. Negative for masses or hepatosplenomegaly. Negative for costovertebral tenderness. Pelvis: Stable nontender. Genitourinary: Deferred. Rectal: Deferred. Extremities: Patient has tenderness in the region of the lateral malleolus with mild swelling on the right there some mild proximal right fibula tenderness Neuro: Awake, alert, oriented. Cranial nerves II through XII unremarkable. Cerebellum unremarkable. Motor and sensory unremarkable throughout. Exam nonfocal. Diagnostics: X-ray tib-fib Therapeutics: To be determined Impression: #1 acute right ankle injury Definitive disposition and diagnosis as appropriate pending reevaluation and review of above. - Related Data Allergies Allergy/AdvReac Type Severity Reaction Status Date / Time latex Allergy Cannot Verified 11/09/18 16:04 Remember Sulfa (Sulfonamide Allergy Difficulty Verified 11/09/18 16:04 Antibiotics) Breathing tizanidine Allergy Rash Verified 11/09/18 16:04 wool Allergy Cannot Verified 11/09/18 16:04 Remember Home Meds: Home Meds Acetaminophen [Tylenol Arthritis] 1,300 mg PO BID 11/09/18 [History] Albuterol [Ventolin HFA] 2 puff INH Q4H PRN 11/09/18 [History] Aspirin [Halfprin] 81 mg PO DAILY 11/09/18 [History] Bran/Gum/Fib/[place]/Psyl/Kelp/Pec [Fiber 6 Tablet] 8,000 mg PO DAILY 11/09/18 [ History] C-Marlen/Catia/Bacl/Bupiv/Clonid 11/09/18 [History] Cholecalciferol (Vitamin D3) [Vitamin D3] 2,000 unit PO DAILY 11/09/18 [History] Cyclobenzaprine [Flexeril] 5 mg PO ASDIRECTED 11/09/18 [History] EPINEPHrine [Epipen] 0.3 ml IM ASDIRECTED 11/09/18 [History] Fluticasone Propionate [Flonase] 2 spray NASBOTH BID 11/09/18 [History] Gabapentin [Neurontin] 300 mg PO ASDIRECTED 11/09/18 [History] Krill/[place]-3/Dha/Epa/Lipids [Krill Oil 300 mg Softgel] 1 tab PO DAILY 11/09/18 [History] Lisinopril [Prinivil] 2.5 mg PO DAILY 11/09/18 [History] Loratadine 10 mg PO DAILY 11/09/18 [History] Magnesium 250 mg PO DAILY 11/09/18 [History] Mecobal/Levomefolat Ca/B6 Phos [Foltanx Tablet] 1 tab PO BID 11/09/18 [History] Melatonin 9 mg PO BEDTIME 11/09/18 [History] Montelukast [Singulair] 10 mg PO BEDTIME 11/09/18 [History] Multivitamin with Iron [Multivitamins with Iron] 1 tab PO DAILY 11/09/18 [ History] Pantoprazole [ProTONIX] 40 mg PO DAILY 11/09/18 [History] Potassium Gluconate [Potassium] 595 mg PO DAILY 11/09/18 [History] Vitamin E 400 unit PO DAILY 11/09/18 [History] atorvaSTATin [Lipitor] 40 mg PO BEDTIME 11/09/18 [History] busPIRone HCl [Buspirone HCl] 15 mg PO BID 11/09/18 [History] diphenhydrAMINE [Benadryl] 50 mg PO ASDIRECTED PRN 11/09/18 [History] hydrOXYzine HCl [hydrOXYzine] 50 mg PO BID 11/09/18 [History] traZODone HCl [Trazodone HCl] 100 mg PO BEDTIME 11/09/18 [History] Past Medical History Cardiovascular History: Reports: High Cholesterol, [place] Other Cardiovascular History: [place] at 14yrs age Respiratory History: Reports: Asthma Other Genitourinary History: Kidney prob due to diabetes 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: Musculoskeletal History: Reports: Back Pain, Chronic Neurological History: Reports: Neuropathy, Diabetic Endocrine/Metabolic History: Reports: Diabetes, Type I Hematologic History: Reports: None - Infectious Disease History Infectious Disease History: Reports: Chicken Pox - Past Surgical History HEENT Surgical History: Reports: Oral Surgery GI Surgical History: Reports: Cholecystectomy Neurological Surgical History: Reports: C-Spine, Lumbar Spine Musculoskeletal Surgical History: Reports: Other (See Below) Social & Family History - Family History Family Medical History: Noncontributory - Caffeine Use Caffeine Use: Reports: Coffee, Soda Review of Systems - Review of Systems Review Of Systems: ROS reveals no pertinent complaints other than HPI. ED EXAM, GENERAL - Physical Exam Exam: See Below (See dictation) Course - Vital Signs Last Recorded V/S: Last Vital Signs Temp 35.9 C 04/28/19 08:40 Pulse 90 04/28/19 08:40 Resp 18 04/28/19 08:40 BP 135/85 04/28/19 08:40 Pulse Ox 97 04/28/19 08:40 - Orders/Labs/Meds Orders: Active Orders 24 hr Category Date Time Status Tibia Fibula Rt [CR] Stat Exams 04/28/19 08:38 Taken Departure - Departure Time of Disposition: 09:50 Disposition: Home, Self-Care 01 Condition: Good Clinical Impression: Ankle injury - Discharge Information Referrals: Batool Patel MD [Primary Care Provider] - Forms: ED Department Discharge Additional Instructions: The following information is given to patients seen in the emergency department who are being discharged to home. This information is to outline your options for follow-up care. We provide all patients seen in our emergency department with a follow-up referral. The need for follow-up, as well as the timing and circumstances, are variable depending upon the specifics of your emergency department visit. If you don't have a primary care physician on staff, we will provide you with a referral. We always advise you to contact your personal physician following an emergency department visit to inform them of the circumstance of the visit and for follow-up with them and/or the need for any referrals to a consulting specialist. The emergency department will also refer you to a specialist when appropriate. This referral assures that you have the opportunity for followup care with a specialist. All of these measure are taken in an effort to provide you with optimal care, which includes your followup. Under all circumstances we always encourage you to contact your private physician who remains a resource for coordinating your care. When calling for followup care, please make the office aware that this follow-up is from your recent emergency room visit. If for any reason you are refused follow-up, please contact the [facility] emergency department at and asked to speak to the emergency department charge nurse. Follow-up primary medical doctor as needed as discussed Daniel wrap crutches as directed Motrin/Tylenol as directed to return as needed as discussed - My Orders Last 24 Hours: My Active Orders 04/28/19 08:38 Tibia Fibula Rt [CR] Stat - Assessment/Plan Last 24 Hours: My Active Orders 04/28/19 08:38 Tibia Fibula Rt [CR] Stat
--- NOTE | 2019-04-28 10:04 | CR ---
INDICATION: Pain. FINDINGS: Two views of the right tibia-fibula show no evidence of acute fracture or dislocation. No other bony or soft tissue abnormalities identified. Dictated by Reece Watson MD @ 04/28/2019 10:03:20 AM Dictated by: Reece Watson MD @ 04/28/2019 10:03:32 (Electronically Signed)
[2019-04-28 14:41] VITALS: BP 131/85
== END 2019-04-28 10:03 | disposition home or self-care (01) ==
LOC: MW.ED 08:32
DX: S99.911A Unspecified injury of right ankle, initial encounter (principal); J45.909 Unspecified asthma, uncomplicated; I25.2 Old myocardial infarction; E10.40 Type 1 diabetes mellitus with diabetic neuropathy, unspecified; Z91.040 Latex allergy status; Z88.2 Allergy status to sulfonamides; Z91.048 Other nonmedicinal substance allergy status; Z88.8 Allergy status to other drugs, medicaments and biological substances; Z79.899 Other long term (current) drug therapy; X50.1XXA Overexertion from prolonged static or awkward postures, initial encounter
CPT/HCPCS: 73590-26-RT; 73590-RT; 99283; 99283-25

== ENCOUNTER 2020-09-06 10:13 | Emergency (ER) | payer MEDICAID, MEDICARE ==
[2020-09-06] MEDS ORDERED: diphenhydrAMINE 50 MG Cap PO ONE (10:40)
[2020-09-06] MEDS ORDERED: Ketorolac 60 MG/2 ML SDV IM ONE (10:40)
[2020-09-06] MEDS ORDERED: Clindamycin HCl 150 MG Cap PO ONE (10:41)
[2020-09-06] MEDS ORDERED: Amoxicillin/Clavulanate K 875-125 MG Tab PO ONE (10:43)
--- NOTE | 2020-09-06 10:50 | EDM.PDOC ---
ED HPI GENERAL MEDICAL PROBLEM - General Chief Complaint: ENT Problem Stated Complaint: SWELLING BY MOUTH Time Seen by Provider: 09/06/20 10:14 Source of Information: Reports: Patient History Limitations: Reports: No Limitations - History of Present Illness INITIAL COMMENTS - FREE TEXT/NARRATIVE: HISTORY AND PHYSICAL: History of present illness: Patient is a 44-year-old female who presents to the emergency room with complaints of left sided facial swelling and dental pain. Patient reports she has had some left lower posterior dental pain over the past 3 days. She woke up this morning with the facial swelling and tenderness to the left lower jawline. She was concerned she could be having an allergic reaction as she did have a chicken sandwich yesterday that may or may not have had salivary (allergic to celery). She did not feel that the dental pain could have caused the swelling as she did not have it 2 days prior. Pain radiates into left ear and when chewing or clenching her jaw. Patient denies any fever, chills, headache, change in vision, syncope or near syncope. Denies any chest pain, back pain, shortness of breath or cough. Denies any abdominal pain, nausea, vomiting, diarrhea, constipation or dysuria. Has not noted any blood in urine or stool. Patient has been eating and drinking appropriately. Review of systems: As per history of present illness and below otherwise all systems reviewed and negative. Past medical history: As per history of present illness and as reviewed below otherwise noncontributory. Surgical history: As per history of present illness and as reviewed below otherwise noncontributory. Social history: See social history for further information Family history: As per history of present illness and as reviewed below otherwise noncontributory. Physical exam: General: Well developed and well nourished 44-year-old female. Alert and orientated x 3. Nontoxic in appearance and in no acute distress. Vital signs are stable and have been reviewed by me. Nursing notes were reviewed. HEENT: Atraumatic, normocephalic, pupils equal and reactive bilaterally, negative for conjunctival pallor or scleral icterus, mucous membranes moist, multiple dental caries with dental decay to the left posterior molar with redness and tenderness along the gumline. There is no tenderness or fluctuation on the floor of mouth. TMs normal bilaterally, throat clear, neck supple, nontender, trachea midline. No drooling, difficulty swallowing or trismus noted. No meningeal signs. No hot potato voice noted. No lymphadenopathy. Lungs: Clear to auscultation, breath sounds equal bilaterally, chest nontender. Normal work of breathing, no accessory muscles used. Heart: S1S2, regular rate and rhythm without overt murmur Abdomen: Soft, nondistended, nontender. Negative for masses or hepatosplenomegaly. Negative for costovertebral tenderness. Skin: Intact, warm, dry. No lesions or rashes noted. Hematologic: No petechiae or purpra. Mucosa appropriate color and normal nail bed color and refill. Extremities: Atraumatic, moves all extremities per self without difficulty or deficits, negative for cords or calf pain. Neurovascular unremarkable. Neuro: Awake, alert, oriented. Cranial nerves II through XII unremarkable. Cerebellum unremarkable. Motor and sensory unremarkable throughout. Exam nonfocal. Psychiatric: Mood and affect are appropriate. Normal thought process. Answering questions appropriately. Notes: Discussed with patient the dental abscess and need for follow-up with her dentist. This does not appear to be an allergic reaction as the swelling is localized and unilateral. She states she does typically take Benadryl on a routine basis although has not had this in 2 or 3 days. I will give her dose here. Further discussed allergic reaction and that she may use Benadryl at home more routinely. We will not provide her with any steroids as she does have a history of diabetes. I have talked with the patient about today's findings, in addition to providing specific details for plan of care. Reassessment at the time of disposition demonstrates that the patient is in no acute distress. The patient is stable for discharge, counseling was provided and we discussed in great detail signs and symptoms that would prompt them to return to the Emergency Department. Medication, follow up and supportive care measures were reviewed and discussed. Voices understanding and is agreeable to plan of care. Denies any further questions or concerns at this time. Diagnostics: None Therapeutics: Toradol IM, Augmentin, Dental Balls Prescription: Augementin Impression: Dental Abscess Plan: 1. Today your exam shows you have a dental abscess. It is important that you take your antibiotic as directed and follow up with the dentist. 2. Tylenol and NSAIDS (such as Ibuprofen or Naproxen) for pain management. May use the dental balls as needed for pain as well. 3. If your symptoms should worsen, new symptoms develop or any of the signs and symptoms we discussed should arise please return to the emergency room or call 911 (if needed). Definitive disposition and diagnosis as appropriate pending reevaluation and review of above. Face/Facial Pain Score (Numeric/FACES): 7 - Related Data Allergies Allergy/AdvReac Type Severity Reaction Status Date / Time latex Allergy Cannot Verified 09/06/20 10:17 Remember Sulfa (Sulfonamide Allergy Difficulty Verified 09/06/20 10:17 Antibiotics) Breathing tizanidine Allergy Rash Verified 09/06/20 10:17 wool Allergy Cannot Verified 09/06/20 10:17 Remember Home Meds: Home Meds Acetaminophen [Tylenol Arthritis] 1,300 mg PO BID 11/09/18 [History] Albuterol [Ventolin HFA] 2 puff INH Q4H PRN 11/09/18 [History] Aspirin [Halfprin] 81 mg PO DAILY 11/09/18 [History] Bran/Gum/Fib/Bethany/Psyl/Kelp/Pec [Fiber 6 Tablet] 8,000 mg PO DAILY 11/09/18 [ History] C-Marlen/Catia/Bacl/Bupiv/Clonid 11/09/18 [History] Cholecalciferol (Vitamin D3) [Vitamin D3] 2,000 unit PO DAILY 11/09/18 [History] Cyclobenzaprine [Flexeril] 5 mg PO ASDIRECTED 11/09/18 [History] EPINEPHrine [Epipen] 0.3 ml IM ASDIRECTED 11/09/18 [History] Fluticasone Propionate [Flonase] 2 spray NASBOTH BID 11/09/18 [History] Loratadine 10 mg PO DAILY 11/09/18 [History] Magnesium 250 mg PO DAILY 11/09/18 [History] Melatonin 9 mg PO BEDTIME 11/09/18 [History] Montelukast [Singulair] 10 mg PO BEDTIME 11/09/18 [History] Multivitamin with Iron [Multivitamins with Iron] 1 tab PO DAILY 11/09/18 [History] Pantoprazole [ProTONIX] 40 mg PO DAILY 11/09/18 [History] Potassium Gluconate [Potassium] 595 mg PO DAILY 11/09/18 [History] Vitamin E 400 unit PO DAILY 11/09/18 [History] atorvaSTATin [Lipitor] 40 mg PO BEDTIME 11/09/18 [History] busPIRone HCl [Buspirone HCl] 15 mg PO BID 11/09/18 [History] diphenhydrAMINE [Benadryl] 50 mg PO ASDIRECTED PRN 11/09/18 [History] hydrOXYzine HCL [hydrOXYzine] 50 mg PO BID 11/09/18 [History] lisinopriL [Prinivil] 2.5 mg PO DAILY 11/09/18 [History] traZODone HCl [Trazodone HCl] 100 mg PO BEDTIME 11/09/18 [History] Amoxicillin/Clavulanate K [Augmentin 875-125 MG] 1 tab PO BID 7 Days #14 tablet 09/06/20 [Rx] Pregabalin 150 mg PO BID 09/06/20 [History] Past Medical History Cardiovascular History: Reports: High Cholesterol, MS Other Cardiovascular History: MS at 14yrs age Respiratory History: Reports: Asthma Other Genitourinary History: Kidney prob due to diabetes [employer] History: Reports: Musculoskeletal History: Reports: Back Pain, Chronic Other Musculoskeletal History: neck surgery Neurological History: Reports: Neuropathy, Diabetic Psychiatric History: Reports: Addiction, PTSD Endocrine/Metabolic History: Reports: Diabetes, Type I Hematologic History: Reports: None - Infectious Disease History Infectious Disease History: Reports: Chicken Pox - Past Surgical History HEENT Surgical History: Reports: Oral Surgery GI Surgical History: Reports: Cholecystectomy Neurological Surgical History: Reports: C-Spine, Lumbar Spine Musculoskeletal Surgical History: Reports: Other (See Below) Other Musculoskeletal Surgeries/Procedures:: neck surgery Social & Family History - Family History Family Medical History: No Pertinent Family History - Tobacco Use Tobacco Use Status *Q: Current Every Day Tobacco User Years of Tobacco use: 30 Packs/Tins Daily: 1 - Caffeine Use Caffeine Use: Reports: Coffee - Recreational Drug Use Recreational Drug Use: No ED ROS ENT - Review of Systems Review Of Systems: Comprehensive ROS is negative, except as noted in HPI. ED EXAM, ENT - Physical Exam Exam: See Below (See dictation) Course - Vital Signs Last Recorded V/S: Last Vital Signs Temp 97.1 F 09/06/20 10:25 Pulse 99 09/06/20 10:25 Resp 18 09/06/20 10:25 BP 153/107 H 09/06/20 10:25 Pulse Ox 95 09/06/20 10:25 - Orders/Labs/Meds Meds: Medications Discontinued Medications Generic Name Dose Route Start Last Admin Trade Name Parth PRN Reason Stop Dose Admin Amoxicillin/Clavulanate Potassium 1 tab 09/06/20 10:43 09/06/20 10:51 Augmentin 875 Mg/125 Mg PO 09/06/20 10:44 1 tab ONETIME ONE Administration Benzocaine 2 each 09/06/20 10:51 09/06/20 11:01 Hurricaine One 20% MUCMEM 09/06/20 10:52 2 each ONETIME ONE Administration Clindamycin HCl 450 mg 09/06/20 10:41 Cleocin PO 09/06/20 10:42 ONETIME ONE Diphenhydramine HCl 50 mg 09/06/20 10:40 09/06/20 10:52 Benadryl PO 09/06/20 10:41 50 mg ONETIME ONE Administration Ketorolac Tromethamine 60 mg 09/06/20 10:40 09/06/20 10:52 Toradol IM 09/06/20 10:41 60 mg ONETIME ONE Administration Lidocaine HCl 15 ml 09/06/20 10:51 09/06/20 11:02 Xylocaine 2% Viscous PO 09/06/20 10:52 15 ml ONETIME ONE Administration Lidocaine HCl 15 ml 09/06/20 10:56 09/06/20 11:02 Xylocaine 2% Viscous PO 09/06/20 10:57 15 ml ONETIME ONE Administration Departure - Departure Time of Disposition: 10:50 Disposition: Home, Self-Care 01 Clinical Impression: Dental abscess - Discharge Information Prescriptions: Amoxicillin/Clavulanate K [Augmentin 875-125 MG] 1 tab PO BID 7 Days #14 tablet Instructions: Dental Abscess, [id number] Referrals: PCP,None [Primary Care Provider] - Forms: ED Department Discharge Additional Instructions: The following information is given to patients seen in the emergency department who are being discharged to home. This information is to outline your options for follow-up care. We provide all patients seen in our emergency department with a follow-up referral. The need for follow-up, as well as the timing and circumstances, are variable depending upon the specifics of your emergency department visit. If you don't have a primary care physician on staff, we will provide you with a referral. We always advise you to contact your personal physician following an emergency department visit to inform them of the circumstance of the visit and for follow-up with them and/or the need for any referrals to a consulting specialist. The emergency department will also refer you to a specialist when appropriate. This referral assures that you have the opportunity for follow-up care with a specialist. All of these measure are taken in an effort to provide you with optimal care, which includes your follow-up. Under all circumstances we always encourage you to contact your private physician who remains a resource for coordinating your care. When calling for follow-up care, please make the office aware that this follow-up is from your recent emergency room visit. If for any reason you are refused follow-up, please contact the [facility] Emergency Department at and asked to speak to the emergency department charge nurse. [facility] [address] [place] [id number] [place] [address] Thank you for choosing the [facility] emergency department in [place] for your medical needs today. It was a pleasure caring for you. Today you were seen in the emergency department for facial swelling and dental pain. 1. Today your exam shows you have a dental abscess. It is important that you take your antibiotic as directed and follow up with the dentist. 2. Tylenol and NSAIDS (such as Ibuprofen or Naproxen) for pain management. May use the dental balls as needed for pain as well. You may continue to use Benadryl as needed. 3. If your symptoms should worsen, new symptoms develop or any of the signs and symptoms we discussed should arise please return to the emergency room or call 911 (if needed). Sepsis Event Note (ED) - Evaluation Sepsis Screening Result: No Definite Risk - Focused Exam Vital Signs: Vital Signs Temp Pulse Resp BP Pulse Ox 09/06/20 10:25 97.1 F 99 18 153/107 H 95
[2020-09-06] MEDS ORDERED: Lidocaine 2% Viscous Solution 15 ML Cup PO ONE ×2 (10:51→10:56)
[2020-09-06] MEDS ORDERED: Benzocaine 20% Topical Spray UD MUCMEM ONE (10:51)
[2020-09-06 11:08] VITALS: BP 150/97; PULSE 98
== END 2020-09-06 11:15 | disposition home or self-care (01) ==
LOC: MW.ED 10:13
DX: K04.7 Periapical abscess without sinus (principal); K02.9 Dental caries, unspecified; E78.00 Pure hypercholesterolemia, unspecified; I25.2 Old myocardial infarction; J45.909 Unspecified asthma, uncomplicated; F17.210 Nicotine dependence, cigarettes, uncomplicated; E10.40 Type 1 diabetes mellitus with diabetic neuropathy, unspecified; Z91.040 Latex allergy status; Z88.2 Allergy status to sulfonamides; Z91.048 Other nonmedicinal substance allergy status; Z88.8 Allergy status to other drugs, medicaments and biological substances; Z79.82 Long term (current) use of aspirin; Z79.899 Other long term (current) drug therapy
CPT/HCPCS: 96372; 99283; A9270; J1885; 99282

== ENCOUNTER 2020-10-03 22:17 | Emergency (ER) | payer MEDICARE ==
[2020-10-03] MEDS ORDERED: Sodium Chloride 0.9% 1,000 ML IV ONE (22:42)
[2020-10-03 23:04] LABS: BLOOD UREA NITROGEN,BUN 20 mg/dL (7.0-18.0); CARBON DIOXIDE,CO2 26.5 mmol/L (21.0-32.0); CHLORIDE,CL 103 mmol/L (98-107); GLUCOSE RANDOM 300 mg/dL (74-106); POTASSIUM,K 4.1 mmol/L (3.5-5.1); SODIUM,NA 139 mmol/L (136-145)
--- NOTE | 2020-10-03 23:21 | CR ---
INDICATION: Presyncope TECHNIQUE: Chest radiograph 1 view COMPARISON: 07/19/2020, 09/30/2020 FINDINGS: Mediastinum: The mediastinum is normal in appearance. The heart silhouette is normal in size and morphology. Lung: Fine reticulonodular interstitial opacities are present in both lung bases without interval change, likely due to interstitial lung disease. Portions of both lung bases are obscured by metallic brassiere clips. No sign of pleural effusion seen. No pneumothorax is identified. Bone and Soft tissue: ACDF of the cervical spine is partially visualized. IMPRESSION: 1. Fine reticulonodular interstitial opacities are present in both lung bases without interval change, likely due to interstitial lung disease. Dictated by Siva Corbin MD @ 10/03/2020 11:19:49 PM Dictated by: Siva Corbin MD @ 10/03/2020 23:19:52 (Electronically Signed)
[2020-10-03 23:38] LABS: CORONAVIRUS COVID-19 NAA NEGATIVE (NEGATIVE); INFLUENZA A NAA NEGATIVE (NEGATIVE); INFLUENZA B NAA NEGATIVE (NEGATIVE); RESPIRATORY SYNCYTIAL VIR NAA NEGATIVE (NEGATIVE)
--- NOTE | 2020-10-04 03:20 | EDM.PDOC ---
ED HPI GENERAL MEDICAL PROBLEM - General Chief Complaint: Syncope Stated Complaint: HIGH BLOOD PRESSURE Time Seen by Provider: 10/03/20 22:42 - History of Present Illness INITIAL COMMENTS - FREE TEXT/NARRATIVE: CHIEF COMPLAINT(S): Low blood pressure HISTORY OF PRESENT ILLNESS: This is a 45-year-old woman with a past medical history of who comes to the emergency department with a chief complaint of low blood pressure. The patient states that prior to arrival she was having a feeling like she was about to pass out where her vision got spots. She denies any syncope. She states that she has a history of low blood pressure but was eating ice cream tonight and felt like she was going to pass out. She denied any chest pain, shortness of breath, abdominal pain, nausea or vomiting. She states that she has been eating but not as much. She denies any illicit substance use. States that she is feeling fine now but denies any other symptoms. She is denies any recent head injury or falls. REVIEW OF SYSTEMS: Constitutional: Denies fever, chills. Eyes: Denies eye pain Ears, Nose, Mouth, & Throat: Denies earache Cardiovascular: Positive for presyncope and hypotension. Denies chest pain Respiratory: Denies shortness of breath Gastrointestinal: Denies Nausea, vomiting, diarrhea, hematochezia. Genitourinary: Denies hematuria Skin:Denies a rash Neurological: Denies blurred vision Psychiatric: Denies depression PAST MEDICAL HISTORY: Per EMR: Type 1 diabetes mellitus, history of dehydration, hypertension SURGICAL HISTORY: As per history of present illness and as reviewed below otherwise noncontributory. SOCIAL HISTORY: As per history of present illness and as reviewed below otherwise noncontributory. FAMILY HISTORY: As per history of present illness and as reviewed below otherwise noncontributory. EXAMINATION OF ORGAN SYSTEMS/BODY AREAS: Constitutional: Blood pressure was 85/54, heart rate 109, respiratory rate 16 with an oxygen saturation of 95% on room air. Temperature 36.1 General: Young woman who does not appear to be in any acute distress. Psychiatric: Appropriate mood and affect. Eyes: No scleral icterus or conjunctival erythema ENMT: Dry mucous membranes. No pharyngeal erythema Cardiovascular: Tachycardic but regular no gallops, murmurs, or rubs. Bilateral upper extremity pulses symmetric and intact. No peripheral edema. No JVD. Respiratory: Lungs clear to auscultation bilaterally. No wheezes, rales, or rhonchi. Gastrointestinal: Soft, non-tender, non-distended. Normoactive bowel sounds Genitourinary: No suprapubic tenderness Musculoskeletal: Normal range of motion. Skin: No lesions or abrasions. Neurological: Alert, GCS 15 MEDICAL DECISION MAKING AND COURSE IN THE ED WITH INTERPRETATION/REVIEW OF DIAGNOSTIC STUDIES: This is a 45-year-old woman with a past medical history of diabetes mellitus, history of dehydration and reported history of hypotension who comes to the emergency department with hypotension and likely presyncopal episodes who appears mildly dehydrated. At this time we did obtain an EKG which did not reveal any acute signs of ischemia. We did provide the patient with liter of normal saline bolus. Will obtain CBC, CMP, Covid, D-dimer, troponin and qualitative hCG. I do believe the patient is experiencing dehydration and hypotension from this. We will reevaluate her vital signs. Laboratory: CBC reveals a leukocytosis of 13.5 with normal indices otherwise unremarkable. D-dimer is negative at 0.50. Coags are within normal limits. CMP reveals acute kidney injury with a BUN of 20 and a creatinine of 1.2. Patient is hyperglycemic at 300. Troponin is negative. The patient is hypoalbuminemic at 2.9. hCG is negative. Covid is negative influenza negative, RSV negative. Repeat troponin is negative Twelve-lead EKG interpreted by myself. Sinus tachycardia at a rate of 106 beats per minute. Normal axis. VT interval is 135ms. QRS duration is a [address] segments are normal without elevations or depressions. No Q waves present. Hypertrophy not noted. No changes demonstrated from prior EKG dated 06/22/2018. Interpretation: Sinus tachycardia with prolonged QT The radiological images were viewed by myself along with reading the report from the radiologist. Chest x-ray does not reveal any acute cardiopulmonary process other than some fine reticular nodule interstitial opacities without any interval change. Under evaluation the patient's blood pressure did normalize. At this time I did discuss that I do believe her symptoms are likely secondary to dehydration. I did encourage the patient to continue to tolerate p.o. and maintain adequate hydration. I discussed the importance of following up with her primary care physician given her hyperglycemia as this is likely one of the main causes of her dehydration. She was amenable to discharge at this time and had no further questions. She is to return for any new or worsening symptoms DISPOSITION: The patient was discharged home in stable condition. The patient will follow up with primary care physician within 2 to 3 days CONDITION: Fair PROCEDURES: None FINAL IMPRESSION(S)/DIAGNOSES: 1. Acute hypotension likely secondary to dehydration Dong Alejo M.D. femoral Pain Score (Numeric/FACES): 8 - Related Data Allergies Allergy/AdvReac Type Severity Reaction Status Date / Time latex Allergy Cannot Verified 10/03/20 22:27 Remember Sulfa (Sulfonamide Allergy Difficulty Verified 10/03/20 22:27 Antibiotics) Breathing tizanidine Allergy Rash Verified 10/03/20 22:27 wool Allergy Cannot Verified 10/03/20 22:27 Remember Home Meds: Home Meds Acetaminophen [Tylenol Arthritis] 1,300 mg PO BID 11/09/18 [History] Albuterol [Ventolin HFA] 2 puff INH Q4H PRN 11/09/18 [History] Aspirin [Halfprin] 81 mg PO DAILY 11/09/18 [History] Bran/Gum/Fib/Bethany/Psyl/Kelp/Pec [Fiber 6 Tablet] 8,000 mg PO DAILY 11/09/18 [Hi story] C-Marlen/Catia/Bacl/Bupiv/Clonid 1 dose .ROUTE ASDIRECTED 11/09/18 [History] Cholecalciferol (Vitamin D3) [Vitamin D3] 2,000 unit PO DAILY 11/09/18 [History] Cyclobenzaprine [Flexeril] 5 mg PO ASDIRECTED 11/09/18 [History] EPINEPHrine [Epipen] 0.3 ml IM ASDIRECTED 11/09/18 [History] Fluticasone Propionate [Flonase] 2 spray NASBOTH BID 11/09/18 [History] Loratadine 10 mg PO DAILY 11/09/18 [History] Magnesium 250 mg PO DAILY 11/09/18 [History] Melatonin 9 mg PO BEDTIME 11/09/18 [History] Montelukast [Singulair] 10 mg PO BEDTIME 11/09/18 [History] Multivitamin with Iron [Multivitamins with Iron] 1 tab PO DAILY 11/09/18 [History] Pantoprazole [ProTONIX] 40 mg PO DAILY 11/09/18 [History] Potassium Gluconate [Potassium] 595 mg PO DAILY 11/09/18 [History] Vitamin E 400 unit PO DAILY 11/09/18 [History] atorvaSTATin [Lipitor] 40 mg PO BEDTIME 11/09/18 [History] busPIRone HCl [Buspirone HCl] 15 mg PO BID 11/09/18 [History] diphenhydrAMINE [Benadryl] 50 mg PO ASDIRECTED PRN 11/09/18 [History] hydrOXYzine HCL [hydrOXYzine] 50 mg PO BID 11/09/18 [History] lisinopriL [Prinivil] 2.5 mg PO DAILY 11/09/18 [History] traZODone HCl [Trazodone HCl] 100 mg PO BEDTIME 11/09/18 [History] Pregabalin 150 mg PO QID 09/06/20 [History] Past Medical History Cardiovascular History: Reports: High Cholesterol, RI Other Cardiovascular History: RI at 14yrs age Respiratory History: Reports: Asthma Other Genitourinary History: Kidney prob due to diabetes [employer] History: Reports: Musculoskeletal History: Reports: Back Pain, Chronic Other Musculoskeletal History: neck surgery Neurological History: Reports: Neuropathy, Diabetic Psychiatric History: Reports: Addiction, PTSD Endocrine/Metabolic History: Reports: Diabetes, Type I Other Endocrine/Metabolic History: insulin pump Hematologic History: Reports: None - Infectious Disease History Infectious Disease History: Reports: Chicken Pox - Past Surgical History HEENT Surgical History: Reports: Oral Surgery GI Surgical History: Reports: Cholecystectomy Neurological Surgical History: Reports: C-Spine, Lumbar Spine Musculoskeletal Surgical History: Reports: Other (See Below) Other Musculoskeletal Surgeries/Procedures:: neck surgery Social & Family History - Family History Family Medical History: No Pertinent Family History - Caffeine Use Caffeine Use: Reports: Coffee ED ROS GENERAL - Review of Systems Review Of Systems: See Below ED EXAM, GENERAL - Physical Exam Exam: See Below Course - Vital Signs Last Recorded V/S: Last Vital Signs Temp 36.1 C 10/03/20 22:23 Pulse 91 10/04/20 03:22 Resp 18 10/04/20 03:22 BP 113/68 10/04/20 03:22 Pulse Ox 91 L 10/04/20 03:22 - Orders/Labs/Meds Labs: Laboratory Tests 10/03/20 10/03/20 10/03/20 Range/Units 22:32 22:32 22:32 WBC 13.15 H (4.0-11.0) K/uL RBC 4.60 (4.30-5.90) M/uL Hgb 14.1 (12.0-16.0) g/dL Hct 42.7 (36.0-46.0) % MCV 92.8 (80.0-98.0) fL MCH 30.7 (27.0-32.0) pg MCHC 33.0 (31.0-37.0) g/dL RDW Std Deviation 47.1 (28.0-62.0) fl RDW Coeff of Kristi 14 (11.0-15.0) % Plt Count 347 (150-400) K/uL MPV 9.60 (7.40-12.00) fL Neut % (Auto) 66.0 (48.0-80.0) % Lymph % (Auto) 23.9 (16.0-40.0) % [place] % (Auto) 7.6 (0.0-15.0) % Eos % (Auto) 2.0 (0.0-7.0) % Baso % (Auto) 0.5 (0.0-1.5) % Neut # (Auto) 8.7 H (1.4-5.7) K/uL Lymph # (Auto) 3.1 H (0.6-2.4) K/uL [place] # (Auto) 1.0 H (0.0-0.8) K/uL Eos # (Auto) 0.3 (0.0-0.7) K/uL Baso # (Auto) 0.1 (0.0-0.1) K/uL Nucleated RBC % 0.0 /100WBC Nucleated RBCs # 0 K/uL INR 1.00 D-Dimer, Quantitative 0.50 (0.0-0.50) mg/L FEU Sodium 139 (136-145) mmol/L Potassium 4.1 (3.5-5.1) mmol/L Chloride 103 (98-107) mmol/L Carbon Dioxide 26.5 (21.0-32.0) mmol/L BUN 20 H (7.0-18.0) mg/dL Creatinine 1.2 H (0.6-1.0) mg/dL Est Cr Clr Drug Dosing 62.67 mL/min Estimated GFR (MDRD) 48.2 ml/min Glucose 300 H (74-106) mg/dL POC Glucose (60-110) mg/dL Calcium 8.9 (8.5-10.1) mg/dL Magnesium 1.8 (1.8-2.4) mg/dL Total Bilirubin 0.2 (0.2-1.0) mg/dL AST 19 (15-37) IU/L ALT 24 (14-63) IU/L Alkaline Phosphatase 112 (46-116) U/L Troponin I < 0.050 (0.000-0.056) ng/mL Total Protein 6.9 (6.4-8.2) g/dL Albumin 2.9 L (3.4-5.0) g/dL Globulin 4.0 (2.6-4.0) g/dL Albumin/Globulin Ratio 0.7 L (0.9-1.6) HCG, Qual (NEG) Influenza Type A RNA (NEGATIVE) RSV RNA (INAAT) (NEGATIVE) Influenza Type B RNA (NEGATIVE) SARS-CoV-2 RNA (MARGA) (NEGATIVE) Blood Type Antibody Screen 10/03/20 10/03/20 10/03/20 Range/Units 22:32 22:39 22:43 WBC (4.0-11.0) K/uL RBC (4.30-5.90) M/uL Hgb (12.0-16.0) g/dL Hct (36.0-46.0) % MCV (80.0-98.0) fL MCH (27.0-32.0) pg MCHC (31.0-37.0) g/dL RDW Std Deviation (28.0-62.0) fl RDW Coeff of Kristi (11.0-15.0) % Plt Count (150-400) K/uL MPV (7.40-12.00) fL Neut % (Auto) (48.0-80.0) % Lymph % (Auto) (16.0-40.0) % [place] % (Auto) (0.0-15.0) % Eos % (Auto) (0.0-7.0) % Baso % (Auto) (0.0-1.5) % Neut # (Auto) (1.4-5.7) K/uL Lymph # (Auto) (0.6-2.4) K/uL [place] # (Auto) (0.0-0.8) K/uL Eos # (Auto) (0.0-0.7) K/uL Baso # (Auto) (0.0-0.1) K/uL Nucleated RBC % /100WBC Nucleated RBCs # K/uL INR D-Dimer, Quantitative (0.0-0.50) mg/L FEU Sodium (136-145) mmol/L Potassium (3.5-5.1) mmol/L Chloride (98-107) mmol/L Carbon Dioxide (21.0-32.0) mmol/L BUN (7.0-18.0) mg/dL Creatinine (0.6-1.0) mg/dL Est Cr Clr Drug Dosing mL/min Estimated GFR (MDRD) ml/min Glucose (74-106) mg/dL POC Glucose 289 H (60-110) mg/dL Calcium (8.5-10.1) mg/dL Magnesium (1.8-2.4) mg/dL Total Bilirubin (0.2-1.0) mg/dL AST (15-37) IU/L ALT (14-63) IU/L Alkaline Phosphatase (46-116) U/L Troponin I (0.000-0.056) ng/mL Total Protein (6.4-8.2) g/dL Albumin (3.4-5.0) g/dL Globulin (2.6-4.0) g/dL Albumin/Globulin Ratio (0.9-1.6) HCG, Qual NEGATIVE (NEG) Influenza Type A RNA NEGATIVE (NEGATIVE) RSV RNA (INAAT) NEGATIVE (NEGATIVE) Influenza Type B RNA NEGATIVE (NEGATIVE) SARS-CoV-2 RNA (MARGA) NEGATIVE (NEGATIVE) Blood Type Antibody Screen 10/03/20 10/04/20 Range/Units 22:55 01:04 WBC (4.0-11.0) K/uL RBC (4.30-5.90) M/uL Hgb (12.0-16.0) g/dL Hct (36.0-46.0) % MCV (80.0-98.0) fL MCH (27.0-32.0) pg MCHC (31.0-37.0) g/dL RDW Std Deviation (28.0-62.0) fl RDW Coeff of Kristi (11.0-15.0) % Plt Count (150-400) K/uL MPV (7.40-12.00) fL Neut % (Auto) (48.0-80.0) % Lymph % (Auto) (16.0-40.0) % [place] % (Auto) (0.0-15.0) % Eos % (Auto) (0.0-7.0) % Baso % (Auto) (0.0-1.5) % Neut # (Auto) (1.4-5.7) K/uL Lymph # (Auto) (0.6-2.4) K/uL [place] # (Auto) (0.0-0.8) K/uL Eos # (Auto) (0.0-0.7) K/uL Baso # (Auto) (0.0-0.1) K/uL Nucleated RBC % /100WBC Nucleated RBCs # K/uL INR D-Dimer, Quantitative (0.0-0.50) mg/L FEU Sodium (136-145) mmol/L Potassium (3.5-5.1) mmol/L Chloride (98-107) mmol/L Carbon Dioxide (21.0-32.0) mmol/L BUN (7.0-18.0) mg/dL Creatinine (0.6-1.0) mg/dL Est Cr Clr Drug Dosing mL/min Estimated GFR (MDRD) ml/min Glucose (74-106) mg/dL POC Glucose (60-110) mg/dL Calcium (8.5-10.1) mg/dL Magnesium (1.8-2.4) mg/dL Total Bilirubin (0.2-1.0) mg/dL AST (15-37) IU/L ALT (14-63) IU/L Alkaline Phosphatase (46-116) U/L Troponin I < 0.050 (0.000-0.056) ng/mL Total Protein (6.4-8.2) g/dL Albumin (3.4-5.0) g/dL Globulin (2.6-4.0) g/dL Albumin/Globulin Ratio (0.9-1.6) HCG, Qual (NEG) Influenza Type A RNA (NEGATIVE) RSV RNA (INAAT) (NEGATIVE) Influenza Type B RNA (NEGATIVE) SARS-CoV-2 RNA (MARGA) (NEGATIVE) Blood Type A POSITIVE Antibody Screen NEGATIVE Meds: Medications Discontinued Medications Generic Name Dose Route Start Last Admin Trade Name Parth PRN Reason Stop Dose Admin Sodium Chloride 1,000 mls @ 999 mls/hr 10/03/20 22:42 10/03/20 22:43 Normal Saline IV 10/03/20 23:42 999 mls/hr .Bolus ONE Administration Departure - Departure Time of Disposition: 03:19 Disposition: Home, Self-Care 01 Condition: Fair Clinical Impression: Dehydration, Orthostatic hypotension - Discharge Information *PRESCRIPTION DRUG MONITORING PROGRAM REVIEWED*: No *COPY OF PRESCRIPTION DRUG MONITORING REPORT IN PATIENT NATA[place]EL: No Instructions: Hypotension, [id number], Dehydration, Adult, [id number] Referrals: PCP,None [Primary Care Provider] - Forms: ED Department Discharge Additional Instructions: You evaluate today on an emergent basis. I do believe you are experiencing your symptoms secondary to dehydration. Please maintain adequate fluid intake. If you have any new or worsening symptoms such as chest pain, shortness of breath or you pass out please return to the emergency department. Please follow-up with your packaging specialist within 2 to 3 days [facility] [address] [place] [address] [place] [address] The patient is informed of any results of their evaluation and diagnostic workup and all questions are answered. They are given discharge instructions and return precautions. The patient is stable for discharge. The patient states they understand and agree with the plan and that they will return if their symptoms get worse or if they have any new concerns. The following information is given to patients seen in the emergency department who are being discharged to home. This information is to outline your options for follow-up care. We provide all patients seen in our emergency department with a follow-up referral. The need for follow-up, as well as the timing and circumstances, are variable depending upon the specifics of your emergency department visit. If you don't have a primary care physician on staff, we will provide you with a referral. We always advise you to contact your personal physician following an emergency department visit to inform them of the circumstance of the visit and for follow-up with them and/or the need for any referrals to a consulting specialist. The emergency department will also refer you to a specialist when appropriate. This referral assures that you have the opportunity for follow-up care with a specialist. All of these measure are taken in an effort to provide you with optimal care, which includes your follow-up. Under all circumstances we always encourage you to contact your private physician who remains a resource for coordinating your care. When calling for fo llow-up care, please make the office aware that this follow-up is from your recent emergency room visit. If for any reason you are refused follow-up, please contact the [facility] Emergency Department at and asked to speak to the emergency department charge nurse. Sepsis Event Note (ED) - Evaluation Sepsis Screening Result: No Definite Risk
[2020-10-04 04:16] VITALS: BP 113/68; PULSE 91
== END 2020-10-04 03:45 | disposition home or self-care (01) ==
LOC: MW.ED 22:17
DX: E86.0 Dehydration (principal); I95.1 Orthostatic hypotension; E78.00 Pure hypercholesterolemia, unspecified; I25.2 Old myocardial infarction; J45.909 Unspecified asthma, uncomplicated; E10.40 Type 1 diabetes mellitus with diabetic neuropathy, unspecified; Z79.82 Long term (current) use of aspirin; Z79.899 Other long term (current) drug therapy; Z91.040 Latex allergy status; Z88.2 Allergy status to sulfonamides; Z88.8 Allergy status to other drugs, medicaments and biological substances; Z91.048 Other nonmedicinal substance allergy status; Z20.822 Contact with and (suspected) exposure to COVID-19
CPT/HCPCS: 0241U; 36415; 71045; 80053; 82962; 83735; 84484; 84703; 85025; 85379; 85610; 86850; 86900; 86901; 93005; 99285; J7030; 93010; 99284

== ENCOUNTER 2020-10-18 12:27 | Emergency (ER) | payer MEDICAID, MEDICARE ==
[2020-10-18 12:52] VITALS: BP 120/84; PULSE 118
--- NOTE | 2020-10-18 12:58 | EDM.PDOC ---
ED HPI GENERAL MEDICAL PROBLEM - General Chief Complaint: General Stated Complaint: FELL AND HURTS TO BREATH Time Seen by Provider: 10/18/20 12:28 Source of Information: Reports: Patient History Limitations: Reports: No Limitations - History of Present Illness INITIAL COMMENTS - FREE TEXT/NARRATIVE: HISTORY AND PHYSICAL: History of present illness: Patient is a 45-year-old female who presents to the emergency room with complaints of right flank/lateral abdominal pain after fall. She reports she was standing on top of a chair, approximately 2 feet off the ground when she fe ll onto her right side. She denies hitting her head or having any loss of consciousness. Patient denies any fever, chills, headache, change in vision, syncope or near syncope. Denies any chest pain, back pain, shortness of breath or cough. Denies any abdominal pain, nausea, vomiting, diarrhea, constipation or dysuria. Has not noted any blood in urine or stool. No concern for . Patient has been eating and drinking appropriately. Patient is a type one diabetic, has an insulin pump. Her blood sugars have been running WNL. She has no systemic concerns today. Review of systems: As per history of present illness and below otherwise all systems reviewed and negative. Past medical history: As per history of present illness and as reviewed below otherwise noncontributory. Surgical history: As per history of present illness and as reviewed below otherwise noncontributory. Social history: See social history for further information Family history: As per history of present illness and as reviewed below otherwise noncontributory. Physical exam: General: Well developed and well nourished 45 year old female. Alert and orientated x 3. Nontoxic in appearance and in no acute distress. Vital signs are stable and have been reviewed by me. Nursing notes were reviewed. HEENT: Atraumatic, nontender, normocephalic, pupils equal and reactive bilaterally, negative for conjunctival pallor or scleral icterus, mucous membranes moist, TMs normal bilaterally, throat clear, neck supple, nontender, trachea midline. No drooling or trismus noted. No meningeal signs. No hot potato voice noted. Lungs: Clear to auscultation bilaterally. No wheezes, rales, or rhonchi. Distal right posterior/lateral/anterior rib pain just above the flank. Normal work of breathing, no accessory muscles used. Heart: S1S2, regular rate and rhythm without overt murmur, gallops, or rubs. No JVD. No peripheral edema Abdomen: Soft, nondistended, nontender. Normoactive bowel sounds. Negative for masses. Moderate right sided costovertebral tenderness. See SKIN. Pelvis: Stable nontender. C-spine/Back: No pinpoint vertebral tenderness upon palpation. No crepitus, step-offs or obvious deformities. Patient is ambulatory into the emergency room without difficulty or deficit. Able to rock back on heels and walk on toes. Denies any urinary or fecal incontinence. Denies any numbness, tingling or saddle paresthesia. No concerns of serious infection, fracture or cord compression, or cauda equina syndrome. Deep tendon reflexes brisk bilaterally. Skin: Healing bruising to right flank and right lateral mid thigh. Remaining skin is intact, warm, dry. No lesions or rashes noted. Hematologic: No petechiae or purpra. Mucosa appropriate color and normal nail bed color and refill. Extremities: Moves all extremities per self without difficulty or deficits. Neurovascular unremarkable. Neuro: Awake, alert, oriented. Cranial nerves II through XII unremarkable. Cerebellum unremarkable. Motor and sensory unremarkable throughout. Exam nonfocal. Psychiatric: Mood and affect are appropriate. Normal thought process. Answering questions appropriately. Notes: *This patient was seen and evaluated during the 2019 SARS-CoV-2 novel coronavirus pandemic period. Community viral transmission is ongoing at time of this encounter and the emergency department is operating under pandemic response procedures. CT shows an acute nondisplaced fractures of the right posterior 10th-12th ribs. No other acute findings in the abdomen or pelvis on this noncontrast exam. Trace right pleural effusion. Probable mild underlying pulmonary fibrosis in the posterior lower lobes bilaterally. Incentive Spirometer was given with education and return demonstration. I have talked with the patient about today's findings, in addition to providing specific details for plan of care. Reassessment at the time of disposition demonstrates that the patient is in no acute distress. Pain has improved with medication. She was unable to void, but declines wanting to stay and wait to provide a sample. The patient is stable for discharge, counseling was provided and we discussed in great detail signs and symptoms that would prompt them to return to the Emergency Department. Medication, follow up and supportive care measures were reviewed and discussed. Voices understanding and is agreeable to plan of care. Denies any further questions or concerns at this time. Diagnostics: Abd/pelvis CT, [employer]: Olinda Hernandez Prescription: David Impression: Fall Rib fracture, multiple Plan: 1. Nondisplaced fractures of the right posterior 10-12th ribs. Please use the incentive spirometer 10 reps every 4 hours while awake to prevent complications such as pneumonia. Gentle heat and/or ice to the areas for comfort. 2. You can alternate Tylenol and ibuprofen as needed for pain and fever management. [place] for moderate to sever pain, take as directed. 3. We encourage you to follow up with your primary care provider and/or recommended specialist in the next few days for re-evaluation and further care/management. 4. If your symptoms should worsen, new symptoms develop or any of the signs and symptoms we discussed should arise please return to the emergency room or call 911 (if needed). Definitive disposition and diagnosis as appropriate pending reevaluation and review of above. Right side Pain Score (Numeric/FACES): 9 - Related Data Allergies Allergy/AdvReac Type Severity Reaction Status Date / Time latex Allergy Cannot Verified 10/18/20 12:49 Remember Sulfa (Sulfonamide Allergy Difficulty Verified 10/18/20 12:49 Antibiotics) Breathing tizanidine Allergy Rash Verified 10/18/20 12:49 wool Allergy Cannot Verified 10/18/20 12:49 Remember Home Meds: Home Meds Acetaminophen [Tylenol Arthritis] 1,300 mg PO BID 11/09/18 [History] Albuterol [Ventolin HFA] 2 puff INH Q4H PRN 11/09/18 [History] Aspirin [Halfprin] 81 mg PO DAILY 11/09/18 [History] Bran/Gum/Fib/Bethany/Psyl/Kelp/Pec [Fiber 6 Tablet] 8,000 mg PO DAILY 11/09/18 [History] C-Marlen/Catia/Bacl/Bupiv/Clonid 1 dose .ROUTE ASDIRECTED 11/09/18 [History] Cholecalciferol (Vitamin D3) [Vitamin D3] 2,000 unit PO DAILY 11/09/18 [History] Cyclobenzaprine [Flexeril] 5 mg PO ASDIRECTED 11/09/18 [History] EPINEPHrine [Epipen] 0.3 ml IM ASDIRECTED 11/09/18 [History] Fluticasone Propionate [Flonase] 2 spray NASBOTH BID 11/09/18 [History] Loratadine 10 mg PO DAILY 11/09/18 [History] Magnesium 250 mg PO DAILY 11/09/18 [History] Melatonin 9 mg PO BEDTIME 11/09/18 [History] Montelukast [Singulair] 10 mg PO BEDTIME 11/09/18 [History] Multivitamin with Iron [Multivitamins with Iron] 1 tab PO DAILY 11/09/18 [History] Pantoprazole [ProTONIX] 40 mg PO DAILY 11/09/18 [History] Potassium Gluconate [Potassium] 595 mg PO DAILY 11/09/18 [History] Vitamin E 400 unit PO DAILY 11/09/18 [History] atorvaSTATin [Lipitor] 40 mg PO BEDTIME 11/09/18 [History] busPIRone HCl [Buspirone HCl] 15 mg PO BID 11/09/18 [History] diphenhydrAMINE [Benadryl] 50 mg PO ASDIRECTED PRN 11/09/18 [History] hydrOXYzine HCL [hydrOXYzine] 50 mg PO BID 11/09/18 [History] lisinopriL [Prinivil] 2.5 mg PO DAILY 11/09/18 [History] traZODone HCl [Trazodone HCl] 100 mg PO BEDTIME 11/09/18 [History] Pregabalin 150 mg PO QID 09/06/20 [History] Acetaminophen/HYDROcodone [[place] 325-5 MG] 1 - 2 tab PO Q4H #20 tablet 10/18/20 [Rx] Past Medical History Cardiovascular History: Reports: High Cholesterol, ID Other Cardiovascular History: ID at 14yrs age Respiratory History: Reports: Asthma Other Genitourinary History: Kidney prob due to diabetes [employer]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 History: Reports: Musculoskeletal History: Reports: Back Pain, Chronic Other Musculoskeletal History: neck surgery Neurological History: Reports: Neuropathy, Diabetic Psychiatric History: Reports: Addiction, PTSD Endocrine/Metabolic History: Reports: Diabetes, Type I Other Endocrine/Metabolic History: insulin pump Hematologic History: Reports: None - Infectious Disease History Infectious Disease History: Reports: Chicken Pox - Past Surgical History HEENT Surgical History: Reports: Oral Surgery GI Surgical History: Reports: Cholecystectomy Neurological Surgical History: Reports: C-Spine, Lumbar Spine Musculoskeletal Surgical History: Reports: Other (See Below) Other Musculoskeletal Surgeries/Procedures:: neck surgery Social & Family History - Family History Family Medical History: No Pertinent Family History - Caffeine Use Caffeine Use: Reports: Coffee - Recreational Drug Use Recreational Drug Use: No ED ROS GENERAL - Review of Systems Review Of Systems: Comprehensive ROS is negative, except as noted in HPI. ED EXAM, GENERAL - Physical Exam Exam: See Below (See dictation) Course - Vital Signs Last Recorded V/S: Last Vital Signs Temp 98.3 F 10/18/20 12:49 Pulse 118 H 10/18/20 12:49 Resp 18 10/18/20 12:49 BP 120/84 10/18/20 12:49 Pulse Ox 98 10/18/20 12:49 - Orders/Labs/Meds Orders: Active Orders 24 hr Category Date Time Status Communication Order [RC] STAT Care 10/18/20 14:27 Ordered UA RFX ELIZABETH AND CULT IF INDIC [URIN] Stat Lab 10/18/20 13:21 Ordered Meds: Medications Discontinued Medications Generic Name Dose Route Start Last Admin Trade Name Parth PRN Reason Stop Dose Admin Hydrocodone Bitart/Acetaminophen 1 tab 10/18/20 13:02 10/18/20 13:51 [place] 325-5 Mg PO 10/18/20 13:03 1 tab ONETIME ONE Administration Ondansetron HCl 4 mg 10/18/20 13:02 10/18/20 13:50 Zofran Odt PO 10/18/20 13:03 4 mg ONETIME ONE Administration Departure - Departure Time of Disposition: 14:21 Disposition: Home, Self-Care 01 Clinical Impression: Fall Qualifiers: Encounter type: initial encounter Qualified Code(s): W19.XXXA - Unspecified fall, initial encounter Rib fracture Qualifiers: Encounter type: initial encounter Rib fracture type: multiple ribs Fracture type: closed Laterality: right Qualified Code(s): S22.41XA - Multiple fractures of ribs, right side, initial encounter for closed fracture - Discharge Information Prescriptions: Acetaminophen/HYDROcodone [[place] 325-5 MG] 1 - 2 tab PO Q4H #20 tablet Instructions: Rib Fracture, [id number] Referrals: Batool Patel MD [Primary Care Provider] - Forms: ED Department Discharge Additional Instructions: The following information is given to patients seen in the emergency department who are being discharged to home. This information is to outline your options for follow-up care. We provide all patients seen in our emergency department with a follow-up referral. The need for follow-up, as well as the timing and circumstances, are variable depending upon the specifics of your emergency department visit. If you don't have a primary care physician on staff, we will provide you with a referral. We always advise you to contact your personal physician following an emergency department visit to inform them of the circumstance of the visit and for follow-up with them and/or the need for any referrals to a consulting specialist. The emergency department will also refer you to a specialist when appropriate. This referral assures that you have the opportunity for follow-up care with a specialist. All of these measure are taken in an effort to provide you with optimal care, which includes your follow-up. Under all circumstances we always encourage you to contact your private physician who remains a resource for coordinating your care. When calling for follow-up care, please make the office aware that this follow-up is from your recent emergency room visit. If for any reason you are refused follow-up, please contact the [facility] Emergency Department at and asked to speak to the emergency department charge nurse. [facility] [address] [place] [id number] [address] Thank you for choosing the [facility] emergency department in [place] for your medical needs today. It was a pleasure caring for you. Today you were seen in the emergency department for rib pain post fall. 1. Nondisplaced fractures of the right posterior 10-12th ribs. Please use the incentive spirometer 10 reps every 4 hours while awake to prevent complications such as pneumonia. Gentle heat and/or ice to the areas for comfort. 2. You can alternate Tylenol and ibuprofen as needed for pain and fever management. [place] for moderate to sever pain, take as directed. 3. We encourage you to follow up with your primary care provider and/or recommended specialist in the next few days for re-evaluation and further care/management. 4. If your symptoms should worsen, new symptoms develop or any of the signs and symptoms we discussed should arise please return to the emergency room or call 911 (if needed). Sepsis Event Note (ED) - Evaluation Sepsis Screening Result: No Definite Risk - Focused Exam Vital Signs: Vital Signs Temp Pulse Resp BP Pulse Ox 10/18/20 12:49 98.3 F 118 H 18 120/84 98 - My Orders Last 24 Hours: My Active Orders 10/18/20 13:21 UA RFX ELIZABETH AND CULT IF INDIC [URIN] Stat 10/18/20 14:27 Communication Order [RC] STAT - Assessment/Plan Last 24 Hours: My Active Orders 10/18/20 13:21 UA RFX ELIZABETH AND CULT IF INDIC [URIN] Stat 10/18/20 14:27 Communication Order [RC] STAT
[2020-10-18] MEDS ORDERED: Acetaminophen/HYDROcodone 325-5 MG Tab PO ONE (13:02)
[2020-10-18] MEDS ORDERED: Ondansetron 4 MG Tab.DIS PO ONE (13:02)
--- NOTE | 2020-10-18 14:09 | CT ---
INDICATION: Fell off chair onto concrete with right rib, flank, and hip pain. TECHNIQUE: CT of the abdomen and pelvis without intravenous contrast. Coronal and sagittal reconstructions. COMPARISON: Chest radiograph 10/03/2020. Right hip radiographs 09/24/2020. FINDINGS: The unenhanced liver, spleen, and adrenal glands are normal in appearance. Cholecystectomy. No biliary dilation. Diffuse pancreatic parenchymal atrophy. No hydronephrosis. No urinary calculi. The unenhanced bladder, uterus, and ovaries are normal in appearance. No bowel dilation. Large amount of stool throughout the colon. Negative appendix. No intraperitoneal free air or fluid. No lymphadenopathy. Posterior instrumented fusion of L4-S1 with interbody spacers. Likely postoperative sclerosis and deformity of the posterior right iliac bone. There are acute nondisplaced fractures of the right posterior 10th-12th ribs. Trace right pleural effusion. Bibasilar atelectasis. Probable mild underlying pulmonary fibrosis in the posterior lower lobes bilaterally. IMPRESSION: 1. Acute nondisplaced fractures of the right posterior 10th-12th ribs. 2. No other acute findings in the abdomen or pelvis on this noncontrast exam. 3. Trace right pleural effusion. 4. Probable mild underlying pulmonary fibrosis in the posterior lower lobes bilaterally. Please note that all CT scans at this facility use dose modulation, iterative reconstruction, and/or weight-based dosing when appropriate to reduce radiation dose to as low as reasonably achievable. Dictated by Kelsea Marie MD @ Oct 18 2020 1:58PM Signed by Dr. Kelsea Marie @ Oct 18 2020 2:09PM
== END 2020-10-18 14:44 | disposition home or self-care (01) ==
LOC: MW.ED 12:27
DX: S22.41XA Multiple fractures of ribs, right side, initial encounter for closed fracture (principal); I25.2 Old myocardial infarction; E78.00 Pure hypercholesterolemia, unspecified; J45.909 Unspecified asthma, uncomplicated; E10.40 Type 1 diabetes mellitus with diabetic neuropathy, unspecified; Z91.040 Latex allergy status; Z88.2 Allergy status to sulfonamides; Z88.8 Allergy status to other drugs, medicaments and biological substances; Z91.048 Other nonmedicinal substance allergy status; Z79.82 Long term (current) use of aspirin; Z79.899 Other long term (current) drug therapy; W07.XXXA Fall from chair, initial encounter
CPT/HCPCS: 74176; 99284; A9270; 99283

== ENCOUNTER 2021-05-27 14:08 | Emergency (ER) | payer MEDICAID, MEDICARE ==
[2021-05-27] MEDS ORDERED: Ketorolac 30 MG/ML SDV IM ONE (15:33)
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
[2021-05-27 16:13] VITALS: BP 138/72; PULSE 84
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
== END 2021-05-27 16:12 | disposition home or self-care (01) ==
LOC: MW.ED 14:08
DX: S20.211A Contusion of right front wall of thorax, initial encounter (principal); E78.00 Pure hypercholesterolemia, unspecified; E10.40 Type 1 diabetes mellitus with diabetic neuropathy, unspecified; J45.909 Unspecified asthma, uncomplicated; I25.2 Old myocardial infarction; Z72.0 Tobacco use; Z91.048 Other nonmedicinal substance allergy status; Z88.2 Allergy status to sulfonamides; W50.1XXA Accidental kick by another person, initial encounter
CPT/HCPCS: 71046; 96372; 99283; J1885

== ENCOUNTER 2022-08-08 12:57 | Emergency (ER) | payer MEDICARE ==
[2022-08-08] MEDS ORDERED: Ketorolac 60 MG/2 ML SDV IM ONE (16:43)
[2022-08-08] MEDS ORDERED: Acetaminophen/HYDROcodone 325-5 MG Tab PO ONE (18:01)
[2022-08-08 18:36] VITALS: BP 134/82; PULSE 97
== END 2022-08-08 18:35 | disposition home or self-care (01) ==
LOC: MW.ED 12:57
DX: S39.012A Strain of muscle, fascia and tendon of lower back, initial encounter (principal); E10.40 Type 1 diabetes mellitus with diabetic neuropathy, unspecified; J45.909 Unspecified asthma, uncomplicated; E78.00 Pure hypercholesterolemia, unspecified; I25.2 Old myocardial infarction; F17.210 Nicotine dependence, cigarettes, uncomplicated; Z91.040 Latex allergy status; Z88.2 Allergy status to sulfonamides; Z91.048 Other nonmedicinal substance allergy status; Z79.899 Other long term (current) drug therapy; Z79.82 Long term (current) use of aspirin
CPT/HCPCS: 96372; 99283; A9270; J1885

== ENCOUNTER 2024-03-12 08:26 | Day surgery (SDC) | payer MEDICARE ==
[2024-03-12] MEDS: Lactated Ringers 1,000 ML IV SCH (08:58)
[2024-03-12] MEDS ORDERED: propofoL 50 ML ONE (09:58)
[2024-03-12] MEDS ORDERED: Lidocaine 2% 5 ML SDV ONE (10:05)
[2024-03-12] MEDS ORDERED: Propofol 200 MG/20 ML SDV ONE (10:05)
[2024-03-12] MEDS ORDERED: Ondansetron 4 MG/2 ML SDV ONE (10:11)
[2024-03-12 11:17] VITALS: BP 116/71; PULSE 72
== END 2024-03-12 11:33 | disposition home or self-care (01) ==
LOC: MW.SDS 08:26
PROVIDERS: ATTEND Surgery
DX: Z12.11 Encounter for screening for malignant neoplasm of colon (principal); R19.5 Other fecal abnormalities; K64.8 Other hemorrhoids; E78.5 Hyperlipidemia, unspecified; I10 Essential (primary) hypertension; K21.9 Gastro-esophageal reflux disease without esophagitis; E10.9 Type 1 diabetes mellitus without complications; J45.909 Unspecified asthma, uncomplicated; F17.210 Nicotine dependence, cigarettes, uncomplicated; Z88.8 Allergy status to other drugs, medicaments and biological substances; Z88.2 Allergy status to sulfonamides; Z91.040 Latex allergy status; Z91.018 Allergy to other foods; Z79.82 Long term (current) use of aspirin; Z79.899 Other long term (current) drug therapy; Z79.4 Long term (current) use of insulin
CPT/HCPCS: G0121; J2405; J2704; J7120; 00811; J3490